=== PATIENT | male | born 1955 | race Caucasian/White ===

== ENCOUNTER → 2023-10-03 06:50 | Outpatient (REF) | payer OTHER, SELFPAY | LOC: MRI 3T 06:50 | PROVIDERS: ATTENDING PHYSICIAN Student in an Organized Health Care Education/Training Program; FAMILY PHYSICIAN Family Medicine | DX: M79.671 Pain in right foot (principal) | CPT/HCPCS: 73718 ==

== ENCOUNTER → 2024-05-15 14:15 | Outpatient (REF) | payer OTHER, SELFPAY | LOC: HWRAD 14:15 | PROVIDERS: ATTENDING PHYSICIAN Surgery; FAMILY PHYSICIAN Family Medicine | DX: N20.0 Calculus of kidney (principal) | CPT/HCPCS: 76770 ==

== ENCOUNTER → 2024-05-23 09:22 | Outpatient (REF) | payer OTHER, SELFPAY | LOC: HWRAD 09:22 | PROVIDERS: ATTENDING PHYSICIAN Family Medicine | DX: M25.521 Pain in right elbow (principal) | CPT/HCPCS: 73070 ==

== ENCOUNTER → 2024-10-04 13:38 | Outpatient (REF) | payer OTHER, SELFPAY | LOC: PAVMRI 13:38 | PROVIDERS: ATTENDING PHYSICIAN Family Medicine | DX: R26.89 Other abnormalities of gait and mobility (principal); H93.8X3 Other specified disorders of ear, bilateral; H92.03 Otalgia, bilateral; M43.6 Torticollis | CPT/HCPCS: 70553; A9575 ==

== ENCOUNTER 2025-02-04 18:31 | Inpatient (IN) | payer OTHER, SELFPAY ==
[2025-02-04] VITALS (17 sets, daily range): BP systolic 111–165; BP diastolic 56–97; BMI 37.0; BMI 35.9
[2025-02-04 13:15] LABS: Hematocrit 36.1 % (39.0-52.0); Hemoglobin 10.6 g/dL (13.0-18.0); Mean Corp Hgb Conc. 29.4 g/dL (33.0-37.0); Mean Corpuscular Volume 76.0 fL (80.0-94.0); Nucleated Red Blood Cells % 0 % (-); Platelet Count 248 10^3/uL (130-400); Red Cell Dist. Width 18.0 % (11.5-14.5)
[2025-02-04 13:39] LABS: ALT (SGPT) 23 U/L (0-50); AST (SGOT) 21 U/L (17-59); Albumin 3.7 g/dl (3.5-5.0); Alkaline Phosphatase 118 U/L (38-126); Blood Urea Nitrogen 17 mg/dl (9-20); Calcium 8.5 mg/dl (8.4-10.2); Carbon Dioxide 27 mmol/L (22-30); Chloride 109 mmol/L (98-107); Glucose 103 mg/dl (70-99); Potassium 3.6 mmol/L (3.5-5.1); Sodium 143 mmol/L (135-145); Total Protein 5.9 g/dl (6.3-8.2); eGFR 49.77
[2025-02-04 13:41] LABS: Troponin I 0.017 ng/ml
--- NOTE | 2025-02-04 16:27 | ED.GENMED ---
History of Present Illness
<Devaughn Carballo MD - Last Filed: 02/04/25 16:28>
General
Chief Complaint: Dizziness
Time Seen by Provider: 02/04/25 15:33
<Caprice Jay PA-C - Last Filed: 02/04/25 19:55>
General
Source: patient
History of Present Illness
History of Present Illness:
see mdm
Past History
<Devaughn Carballo MD - Last Filed: 02/04/25 16:28>
Past History
ED Past Medical History: CVA, HTN and NIDDM
ED Past Surgical History: None
Social History
Tobacco: Non-smoker
Alcohol: None
Drug: None
Personal:
Living: with family
Family History
Family History: Other
Phy Exam
<Caprice Jay PA-C - Last Filed: 02/04/25 19:55>
Physical Exam
Physical Exam:
GENERAL: Alert , in no apparent distress, awake/alert
EYE: pupils equal and reactive
NECK: Supple
ENT: o/p clr, mmm.
CARDIAC: bradycardia 40s; irregular; mild B/L LE pitting edema .
LUNGS: Clear breath sounds bilaterally, no acute respiratory distress, no wheezes/rales/rhonchi
ABDOMEN: Soft, without focal tenderness, no r/g, no cvat, normal bowel sounds
NEUROLOGICAL: Alert and oriented, no focal neuro deficits, moving tee xtremities; no confusion
SKIN: Warm and dry, skin intact. bruising L knee
MUSCULOSKELETAL: mild b/l edema, well perfused. neg gerri's sign
L knee anterior bruising and swelling sts, full ROM
PSYCH: Normal and appropriate interaction.
Course
<Devaughn Carballo MD - Last Filed: 02/04/25 16:28>
Orders/Labs/Results
Orders:
Orders
02/04/25 12:18
Electrocardiogram (*1) Urgent
Reason for Study: Vertigo / Dizzy
CT Head W/o Iv Contrast Urgent
Comment:
Reason For Exam: Dizziness with stroke hx
02/04/25 12:19
EKG- Treatment ONCE
02/04/25 12:44
Complete Blood Count/With Diff Urgent
Comprehensive Metabolic Panel Urgent
Ferritin Urgent
Comment: ADD ON
Folate Urgent
Comment: ADD ON
Iron Urgent
Magnesium Urgent
Comment: ADDON
Total Iron Binding Urgent
Troponin I Urgent
02/04/25 16:06
EKG [Electrocardiogram (*1)] Urgent
Reason for Study: Bradycardia / Tachycardia
02/04/25 16:07
EKG- Treatment ONCE
02/04/25 16:54
Atropine Sulfate [Atropine 0.1 mg/ml Syringe] 1 mg .ROUTE .STK-MED ONE
02/04/25 17:43
CARDIOLOGY CONSULT Routine
Consulting Provider: Joby Elias
Was physician already notified: Yes
Reason for consult: Symptomatic bradycardia
02/04/25 17:44
Admit/Transfer Patient As Directed
Co-Sign Provider:
Level of Care: Inpatient admission
Assign to:: IVU
Physician / Group: romy rodriguez
Diagnosis: Symptomatic bradycardia, ANN, microcytic anemia
Reason for Hospitalization: Symptomatic bradycardia, ANN, microcytic anemia
Expected length of stay greater than two midnights?: Yes
ELOS- Estimated Length of Stay in days: 4
I certify the patient meets the requirements for IP care: Yes
Code Status As Directed
Resuscitation Status: Full Code
02/04/25 17:46
PRN Pain Medication Management As Directed
May give lesser potent ordered pain med per pt: Yes
preference::
Protocol:: Medication orders for pain may be administered in a
manner that supports deferring to patient preference
when the pt is:
- Requesting an ordered lesser potent pain medication.
Least to most potent pain medications are defined
as: acetaminophen < NSAID < tramadol < opioids
(morphine, oxycodone, hydromorphone).
- Requesting a lesser dose of the same medication IF
ORDERED.
- Requesting a less intrusive route of administration
if both routes are prescribed by the provider (PO <
IV).
02/04/25 17:48
Add On- LAB Urgent
Tests Added?: Ferritin, TIBC, iron, B12, folate
02/04/25 17:53
Add On- LAB Urgent
Tests Added?: mag
Abnormal Lab Results
02/04/25
12:44
Hgb 10.6 L g/dL
(13.0-18.0)
Hct 36.1 L %
(39.0-52.0)
MCV 76.0 L fL
(80.0-94.0)
MCH 22.3 L pg
(27.0-31.0)
MCHC 29.4 L g/dL
(33.0-37.0)
RDW 18.0 H %
(11.5-14.5)
Absolute Neuts (auto) 6.8 H 10^3/uL
(1.4-6.5)
Absolute Monos (auto) 0.9 H 10^3/uL
(0.1-0.6)
Lymphocytes % 17.9 L %
(20.5-51.1)
Chloride 109 H mmol/L
(98-107)
Creatinine 1.5 H mg/dL
(0.7-1.3)
Glucose 103 H mg/dl
(70-99)
Iron 35 L ug/dl
(49-181)
% Saturation 9 L %
(20-50)
Total Protein 5.9 L g/dl
(6.3-8.2)
02/04/25 12:44
02/04/25 12:44
Vital Signs
Initial and Last Documented VS:
Initial Vital Signs
Temp Pulse Resp BP Pulse Ox
36.7 C 55 20 111/56 96
02/04/25 12:16 02/04/25 12:16 02/04/25 12:16 02/04/25 12:16 02/04/25 12:16
Last Documented Vital Signs
Temp Pulse Resp BP Pulse Ox
36.7 C 67 20 155/96 97
02/04/25 12:16 02/04/25 19:48 02/04/25 19:30 02/04/25 19:30 02/04/25 19:30
<Caprice Jay PA-C - Last Filed: 02/04/25 19:55>
Orders/Labs/Results
Orders:
Orders
02/04/25 12:18
Electrocardiogram (*1) Urgent
Reason for Study: Vertigo / Dizzy
CT Head W/o Iv Contrast Urgent
Comment:
Reason For Exam: Dizziness with stroke hx
02/04/25 12:19
EKG- Treatment ONCE
02/04/25 12:44
Complete Blood Count/With Diff Urgent
Comprehensive Metabolic Panel Urgent
Ferritin Urgent
Comment: ADD ON
Folate Urgent
Comment: ADD ON
Iron Urgent
Magnesium Urgent
Comment: ADDON
Total Iron Binding Urgent
Troponin I Urgent
02/04/25 16:06
EKG [Electrocardiogram (*1)] Urgent
Reason for Study: Bradycardia / Tachycardia
02/04/25 16:07
EKG- Treatment ONCE
02/04/25 16:54
Atropine Sulfate [Atropine 0.1 mg/ml Syringe] 1 mg .ROUTE .STK-MED ONE
02/04/25 17:43
CARDIOLOGY CONSULT Routine
Consulting Provider: Joby Elias
Was physician already notified: Yes
Reason for consult: Symptomatic bradycardia
02/04/25 17:44
Admit/Transfer Patient As Directed
Co-Sign Provider:
Level of Care: Inpatient admission
Assign to:: IVU
Physician / Group: romy rodriguez
Diagnosis: Symptomatic bradycardia, ANN, microcytic anemia
Reason for Hospitalization: Symptomatic bradycardia, ANN, microcytic anemia
Expected length of stay greater than two midnights?: Yes
ELOS- Estimated Length of Stay in days: 4
I certify the patient meets the requirements for IP care: Yes
Code Status As Directed
Resuscitation Status: Full Code
02/04/25 17:46
PRN Pain Medication Management As Directed
May give lesser potent ordered pain med per pt: Yes
preference::
Protocol:: Medication orders for pain may be administered in a
manner that supports deferring to patient preference
when the pt is:
- Requesting an ordered lesser potent pain medication.
Least to most potent pain medications are defined
as: acetaminophen < NSAID < tramadol < opioids
(morphine, oxycodone, hydromorphone).
- Requesting a lesser dose of the same medication IF
ORDERED.
- Requesting a less intrusive route of administration
if both routes are prescribed by the provider (PO <
IV).
02/04/25 17:48
Add On- LAB Urgent
Tests Added?: Ferritin, TIBC, iron, B12, folate
02/04/25 17:53
Add On- LAB Urgent
Tests Added?: mag
Abnormal Lab Results
02/04/25
12:44
Hgb 10.6 L g/dL
(13.0-18.0)
Hct 36.1 L %
(39.0-52.0)
MCV 76.0 L fL
(80.0-94.0)
MCH 22.3 L pg
(27.0-31.0)
MCHC 29.4 L g/dL
(33.0-37.0)
RDW 18.0 H %
(11.5-14.5)
Absolute Neuts (auto) 6.8 H 10^3/uL
(1.4-6.5)
Absolute Monos (auto) 0.9 H 10^3/uL
(0.1-0.6)
Lymphocytes % 17.9 L %
(20.5-51.1)
Chloride 109 H mmol/L
(98-107)
Creatinine 1.5 H mg/dL
(0.7-1.3)
Glucose 103 H mg/dl
(70-99)
Iron 35 L ug/dl
(49-181)
% Saturation 9 L %
(20-50)
Total Protein 5.9 L g/dl
(6.3-8.2)
02/04/25 12:44
02/04/25 12:44
Vital Signs
Initial and Last Documented VS:
Initial Vital Signs
Temp Pulse Resp BP Pulse Ox
36.7 C 55 20 111/56 96
02/04/25 12:16 02/04/25 12:16 02/04/25 12:16 02/04/25 12:16 02/04/25 12:16
Last Documented Vital Signs
Temp Pulse Resp BP Pulse Ox
36.7 C 67 20 155/96 97
02/04/25 12:16 02/04/25 19:48 02/04/25 19:30 02/04/25 19:30 02/04/25 19:30
<Caprice Jay PA-C - Last Filed: 02/04/25 19:55>
MDM/Problems Addressed
MDM/Problems Addressed:
Note:
CHIEF COMPLAINT(S)
Dizziness and history of a fall.
HISTORY OF PRESENT ILLNESS
The patient presents with complaints of dizziness and a history of falling. The patient reports walking into a wall, which prompted a visit to the emergency department. The fall occurred on Tuesday due to tripping over a door sill, not due to
dizziness. The patient describes a feeling as if about to pass out, which began today while accompanying the spouse for a medical procedure. No loss of consciousness was reported, nor was there any chest pain, shortness of breath, or headache
associated with these episodes. The patient does report feeling generally tired. A history of low heart rate was noted, with the patient confirming no previous episodes of significant bradycardia. The patients dizziness today is associated with
occasional compensatory pauses in heart rhythm but no confirmed long runs. The patient denies any visual problems, confirming good eyesight except for possibly tripping due to environmental factors.
CHRONIC MEDICAL CONDITIONS SIGNIFICANTLY AFFECTING CARE
1. Hypertension, treated with Lisinopril.
2. Type 2 Diabetes Mellitus.
3. Patient is on Apixaban for anticoagulation treatment.
4. History of edema treated with Furosemide.
MEDICATIONS
1. Lisinopril for hypertension.
2. Apixaban for anticoagulation.
3. Furosemide (Lasix) as a diuretic for edema.
REVIEW OF SYSTEMS
- Cardiovascular: Reports no chest pain or shortness of breath. History of slow heart rate and occasional dizziness.
- General: Reports feeling fatigued and wiped out. No fever or chills reported.
- Neurological: Experiences dizziness but no loss of consciousness or headache. Reports feeling a sensation edson to passing out.
- Respiratory: No shortness of breath reported.
PHYSICAL EXAM
- Cardiovascular: Noted slow heart rate consistent with bradycardia.
- Neurology: Patient is awake and alert.
- Nursing notes reviewed and vital signs reviewed.
PROBLEM LIST
- Acute:
- Dizziness with compensatory pauses in heart rhythm.
- Chronic:
- Hypertension.
- Type 2 Diabetes Mellitus.
PLAN
1. Observe and monitor heart rhythm and rate in hospital to assess for potential atrioventricular blocks or other arrhythmias.
2. Perform a comprehensive evaluation of thyroid function to rule out thyroid-related causes.
3. Consider cardiology consultation to evaluate possible need for a pacemaker due to bradycardia and the sensation of near syncope.
DIFFERENTIAL DIAGNOSIS
The Differential Diagnosis includes, in no particular order and is not limited to:
1. Bradycardia-related dizziness.
2. Arrhythmia.
3. Orthostatic hypotension.
4. Vestibular dysfunction.
5. Medication side effects.
6. Dehydration.
7. Hypoglycemia.
8. Anemia.
9. Myocardial infarction.
10. Cerebrovascular accident (CVA or Stroke).
PT IS HAVE COMPENSATORY PAUSES; SINUS KERI WITH PVCS
he is symptomatic
sloer to respond but no CP
stabl BP
with near syncope/dizziness, will admit
<Devaughn Carballo MD - Last Filed: 02/04/25 16:28>
*Pulse Oximetry
SaO2: 96
Oxygen Mode of Delivery: Room air
<Caprice Jay PA-C - Last Filed: 02/04/25 19:55>
*Pulse Oximetry
Patient hypoxic: no (97)
*Critical Care Note
Total Time (30-74mins, 75-104mins- exclusive of procedures): Not Applicable
ED Attending Note
<Devaughn Carballo MD - Last Filed: 02/04/25 16:28>
ED Attending Note
Patient seen and examined by attending physician: Yes
I performed the substantive portion of visit, reviewed & personally made and approve the management plan that is documented in note by myself or MATTHEW.: Yes
ED Attending Note:
Patient with an episode of near syncope today. Also had a fall days ago. No chest pain shortness of breath or other complaints.
On exam patient is nontoxic in no distress. Slightly flat affect. Bradycardic and regular no murmur. Lungs are clear and equal. Abdomen is soft and nontender. Areas of ecchymosis left greater than right leg.
Rhythm is a bradycardic sinus rhythm. EKG shows an ectopic rhythm repeat EKG shows a sinus rhythm. PVCs with pause after the PVCs. Whether this is related to his near syncope is uncertain at this time. Symptomatic enough to warrant continued
monitoring and admission. Previous EKGs reviewed he does tend to be bradycardic however. Nothing on the monitor to support life-threatening arrhythmia or significant pause at this time
-
Portions of this chart may have been created with voice recognition software.� Occasional wrong word or��sound alike� substitutions may have occurred due to the inherent limitations of voice recognition software.
Discharge Plan
Departure
Patient Disposition: Admit
Date of Disposition: 02/04/25
Time of Disposition: 16:25
Admit to: Telemetry
Presentation/result/management discussed w/ accepting MD/DO: Hospitalist
Condition: Fair
Covid-19: Not Applicable
Discharge Problem:
Near syncope, Bradycardia, pvc with pause
Interventions
Interventions:
*General Assessment Last Done: 02/04/25 12:16
*Neglect/Abuse Screening Last Done: 02/04/25 15:20
*ED- Fall Risk Assessment Last Done: 02/04/25 15:20
*ED COVID-19 Vaccine History Last Done: 02/04/25 15:20
ED- Neurological Assessment Last Done: 02/04/25 15:30
ED- Cardiac Assessment Last Done: 02/04/25 15:30
--- NOTE | 2025-02-04 17:13 | HPS.HSE ---
Addendum entered and electronically signed by Tasneem Hough MD 02/04/25 22:36:
I have personally seen and examined the patient. I have reviewed the patient with FRONT DESK MANAGER or PA and agree with their note.
69-year-old male with PAF, HTN, DM2, CVA with residual right sided weakness, essential tremor, presenting with near syncope, found to be bradycardic to the 40s with occasional PACs. He is seen now at rest in the ED and his HR is fluctuating between
50 and 60, and he is asymptomatic.
On exam he is in NAD, heart is bradycardic, with irregular rhythm, no murmur. Lungs are CTAB, abdomen soft/NT/ND/NABS, bilateral lower extremity edema.
Labs are notable for creatinine of 1.5
EKG reviewed bradycardia to 45 bpm, appears regular
Assessment:
Symptomatic bradycardia
ANN
Chronic edema
Chronic anemia
HTN
PAF
DM2
Plan:
Cardiology consulted, hold propranolol and monitor on telemetry. No reversal agent as yet. Admit to IVU in case pacemaker needed.
Patient's Lasix on hold, monitor BMP to see if ANN resolved
Other meds as below for chronic stable conditions
Original Note:
Family Physician
-
Family Physician: Michael Pastro
Chief Complaint
-
Dizziness, bradycardia
History of Present Illness
69-year-old male who states he had a feeling of he was going to pass out today while walking he felt like his vision was getting black and he stumbled into a wall. He dropped his off today for a knee replacement. He reports having a couple
similar episodes over the past month. He has also been feeling tired. He did have a fall on Tuesday 2 days ago however he tripped over a dorsal this was not due to dizziness. It was noted he was bradycardic with heart rate as low as 41 bpm and
occasional PACs. He is on a diuretic due to history of edema and is on a beta-indy for essential tremors. He denies headache, blurred vision, sore throat, fever, chills, chest pain, palpitations, shortness of breath, cough, abdominal pain,
nausea, vomiting, diarrhea, urinary symptoms. He has past medical history of HTN, paroxysmal A-fib on Eliquis, DM 2, HLD, edema, CVA with right-sided weakness, HLD, lumbar radiculopathy/sciatica, essential tremor, depression anxiety, BPH,History
lithotripsy/stone extraction stent placement complicated with sepsis UTI, urine positive Enterococcus 05/15/2023.
Medical History
Past Medical History
Past Medical History: Reports Other
Additional Past Medical History:
history of nephrolithiasis, essential tremor, hypertension, depression, BPH, paroxysmal A-fib on warfarin, hyperlipidemia, [id number] diabetes mellitus, history of CVA with some right-sided residual weakness, lumbar
radiculopathy/sciatica, chronic ambulatory dysfunction uses cane at baseline
Past Surgical History: Reports Other
Social History
Tobacco: Non-smoker
Alcohol: None
Personal:
Living: With Family
Family History
Family History: Not pertinent
Allergies / Home Medications
Allergies reflects when Allergies were last updated in [facility].
Home Medications with original date entered in [facility]
Allergy/Medication List:
Allergies
Allergy/AdvReac Type Severity Reaction Status Date / Time
Penicillins Allergy Intermediate Hives, rash Verified 02/04/25 12:16
Home Medications
propranolol 120 mg capsule,24 hr,extended release 120 mg PO BID 06/12/16
hydralazine 50 mg tablet 50 mg PO TID #90 tabs 05/18/18
tamsulosin 0.4 mg capsule 0.4 mg PO HS 08/24/19
cyanocobalamin (vitamin B-12) 1,000 mcg tablet 1,000 mcg PO DAILY@1500 Supplement 01/19/21
duloxetine 60 mg capsule,delayed release 60 mg PO BID Mental Health/Anxiety 01/19/21
primidone 250 mg tablet 250 mg PO BID 01/19/21
amlodipine 5 mg tablet 5 mg PO DAILY Blood Pressure 06/03/22
apixaban 5 mg tablet (Eliquis) 5 mg PO BID #60 tabs 05/19/23
acetaminophen 500 mg tablet (Tylenol Extra Strength) 1,000 mg PO DAILYPRN PRN mild pain 02/04/25
alprazolam 0.5 mg tablet,extended release 24 hr 0.5 mg PO DAILY 02/04/25
aspirin 81 mg tablet,delayed release 81 mg PO DAILY@1500 02/04/25
atorvastatin 80 mg tablet 80 mg PO DAILY 02/04/25
cinnamon bark 500 mg capsule (Cinnamon) 500 mg PO .EVERY 2-3 DAYS 02/04/25
furosemide 40 mg tablet 40 mg PO DAILYPRN PRN edema 02/04/25
ibuprofen 200 mg tablet (Advil) 400 mg PO DAILYPRN PRN mild pain 02/04/25
lisinopril 40 mg tablet 40 mg PO DAILY@1500 02/04/25
topiramate 50 mg tablet 50 mg PO BID 02/04/25
Review of Systems
-
History Source: Patient
A 12 point ROS was completed and negative except as noted: Yes
Constitutional: Reports Fatigue; Denies Fever
EENT: Denies Sore Throat or Runny Nose
Respiratory: Denies Cough or Trouble Breathing
Cardiac: Denies Chest Pain, Diaphoresis, Palpitations or Syncope
Abdomen/GI: Denies Abdominal Pain, Nausea, Vomiting, Diarrhea, Constipated, Bloody Stools or Black Stools
: Denies Dysuria, Frequency, Flank Pain, Incontinence or Difficulty Voiding
Musculoskeletal: Reports Edema (+1 pitting bilateral lower legs); Denies Joint Pain
Skin: Denies Itching or Rash
Neurological: Reports Dizzy and Weakness; Denies Headache
Endocrine: Reports No Symptoms
Hematologic/Lymphatic: Reports No Symptoms
Psych: Reports Calm
Physical Exam
Vital Signs
Vital Signs
Temp Pulse Resp BP Pulse Ox
98.0 F 48 16 139/90 96
02/04/25 12:16 02/04/25 17:00 02/04/25 17:00 02/04/25 17:00 02/04/25 17:00
Physical Exam
General: Comfortable, Conversant and Morbidly Obese; No Fever, Chills or Slurred Speech
HEENT: NormoCephalic, Anicteric, PERRLA, Sentinel Conjunctivae and No Ptosis
Respiratory: Clear; No Wheezes, Rales or Rhonchi
Cardiac: S1/S2, Bradycardia (Bradycardia with PVCs 41-57 bpm) and Peripheral Edema (+1 pitting bilateral lower legs); No Murmur, Rub or Gallop
Breast: Deferred by me
GI: Soft, Non Tender, Non Distended, Normal Bowel Sounds and No Hepatosplenomegaly
Rectal: Deferred by Provider
Genito-urinary: Deferred by me
Musculoskeletal: No Clubbing, No Cyanosis, Edema, Left Lower Extremity (+1 pitting) and Edema, Right Lower Extremity (+1 pitting); No Edema, Left Upper Extremity or Edema, Right Upper Extremity
Skin: Warm and Dry; No Rash or Jaundice
Neuro: AO x 3, No Motor Deficits (While in bed), Nonfocal/grossly intact, Cranial Nerves Intact, No Sensory Deficits and Tremors (Essential hands); No Slurred Speech, Facial Droop or Sedated
Psych: Calm
Laboratory Results
-
02/04/25 12:44
02/04/25 12:44
Laboratory Results
Total Bilirubin 0.4 mg/dl (0.2-1.3) 02/04/25 12:44
AST 21 U/L (17-59) 02/04/25 12:44
ALT 23 U/L (0-50) 02/04/25 12:44
Alkaline Phosphatase 118 U/L (38-126) 02/04/25 12:44
Troponin I 0.017 ng/ml 02/04/25 12:44
Impression/Plan
-
Impression/plan:
Admit to IVU
#Symptomatic bradycardia
HR 41-57 bpm with frequent PVCs
- Consult cardiology
- Hold propranolol
- Continue Eliquis
CT head: No acute intracranial abnormalities. Findings compatible with diffuse cortical atrophy with nonspecific white matter changes
#ANN
Creat 1.5 prior baseline 1
- Will hold Lasix monitor BMP
- Hold lisinopril 40 mg daily
#Chronic peripheral edema
-Hold Lasix due to ANN
#Chronic anemia-microcytic
Hgb 10.6 baseline appears 11.5, MCV 76
-Check iron panel
#HTN�benign
BP 139/90
- Continue hydralazine 50 mg p.o. 3 times daily
#Paroxysmal A-fib
- Continue Eliquis
2D echo 05/17/2023: EF 55%, left ventricle mildly dilated, normal LVSF, mild LVH, trace MR, TR, PASP 25-30 mmHg
#CVA with right-sided weakness
Continue aspirin 81 mg daily, atorvastatin 80 mg daily
#HLD
Continue atorvastatin 80 mg daily
#DM 2
Accu-Cheks with SSI, check HgbA1c
- Hold metformin 850 mg p.o. twice daily
#History lumbar radiculopathy/sciatica
#Essential hand tremor
- Hold propranolol
- Continue primidone to 50 mg p.o. twice daily
#Depression/anxiety
- Continue alprazolam 0.5 mg p.o. twice daily as needed anxiety
#BPH
#History lithotripsy/stone extraction stent placement complicated with sepsis UTI, urine positive Enterococcus 05/15/2023
- Continue Flomax 0.4 mg daily
#Chronic ambulatory dysfunction
-Uses cane at baseline
#Class II obesity�BMI 36.9
Affects all aspects of care
Weight loss recommended low-fat 1800 ADA diet
DVT prophylaxis
Continue Eliquis
Full code
[2025-02-04 18:23] LABS: Iron 35 ug/dl (49-181); Magnesium 2.3 mg/dl (1.6-2.3)
[2025-02-04 18:32] LABS: Total Iron Binding Capacity 370 ug/dl (261-462)
[2025-02-04 21:44] LABS: Glucose - Point of Care 132 mg/dl (70-99)
[2025-02-04] MEDS: CYMBALTA DELAYED RELEASE 60 MG PO (22:09)
[2025-02-04] MEDS: TOPAMAX 50 MG PO (22:09)
[2025-02-04] MEDS: ELIQUIS 5 MG PO (22:09)
[2025-02-04] MEDS: FLOMAX 0.4 MG PO (22:09)
[2025-02-04] MEDS: APRESOLINE 50 MG PO (22:09)
[2025-02-04] MEDS: MYSOLINE 250 MG PO (22:09)
[2025-02-05] VITALS (11 sets, daily range): BP systolic 123–146; BP diastolic 54–82; PULSE 52–55; O2SAT 98; BMI 35.7
[2025-02-05 00:18] LABS: Ferritin 6.3 ng/ml (17.9-464.0)
[2025-02-05 00:49] LABS: Folate 10.3 ng/ml (2.76-20)
--- NOTE | 2025-02-05 03:30 | PTCARENOTE ---
pt admitted to room 2241. Pt AAox3. SB with PVCs and 1st HB on monitor. C/o slightly lightheadedness when OOB. Ambulates with x1 assist and RW. Pt oriented to the room, call henry within reach.
[2025-02-05] MEDS: TYLENOL 650 MG PO ×3 (04:12→21:04)
[2025-02-05 04:34] LABS: Hematocrit 33.4 % (39.0-52.0); Hemoglobin 10.0 g/dL (13.0-18.0); Mean Corp Hgb Conc. 29.9 g/dL (33.0-37.0); Mean Corpuscular Volume 74.7 fL (80.0-94.0); Nucleated Red Blood Cells % 0 % (-); Platelet Count 215 10^3/uL (130-400); Red Cell Dist. Width 17.7 % (11.5-14.5)
[2025-02-05 05:35] LABS: Blood Urea Nitrogen 18 mg/dl (9-20); Calcium 8.2 mg/dl (8.4-10.2); Carbon Dioxide 29 mmol/L (22-30); Chloride 113 mmol/L (98-107); Estimated Creatinine Clearance 76 ml/min; Glucose 108 mg/dl (70-99); Potassium 3.0 mmol/L (3.5-5.1); Sodium 143 mmol/L (135-145); eGFR > 60.00
[2025-02-05] MEDS: NORVASC 5 MG PO (08:18)
[2025-02-05] MEDS: LIPITOR 80 MG PO (08:19)
[2025-02-05] MEDS: ELIQUIS 5 MG PO ×2 (08:19→20:57)
[2025-02-05] MEDS: MYSOLINE 250 MG PO ×2 (08:19→20:57)
[2025-02-05] MEDS: XANAX 0.25 MG PO ×2 (08:19→20:57)
[2025-02-05] MEDS: APRESOLINE 50 MG PO ×3 (08:19→20:57)
[2025-02-05] MEDS: TOPAMAX 50 MG PO ×2 (08:19→20:57)
[2025-02-05] MEDS: CYMBALTA DELAYED RELEASE 60 MG PO ×2 (08:19→20:58)
--- NOTE | 2025-02-05 08:48 | CON.CAR ---
Addendum entered and electronically signed by Joby Elias MD 02/05/25 11:01:
I saw and examined the patient.
The SCREENER OPERATOR or PA's note was reviewed and I agree with the note.
Comment: General: Well developed, well nourished in NAD.
Neck: Supple, no JVD, HJR, carotids +2 B/L, no bruits bilaterally.
Heart: Non displaced PMI, RRR, no murmurs, No S3, S4, no rubs.
Lungs: Clear to auscultation bilaterally, no wheeze, rhonchi, rubs bilaterally,
normal expiratory phase.
Extremities: No clubbing, cyanosis or edema bilaterally.
Neuro: Grossly nonfocal, awake, alert and oriented x3.
Follow-up as history of A-fib on chronic Eliquis, asymptomatic bradycardia, essential tremor on chronic propranolol, history of CVA, diabetes, diastolic CHF, PFO. He presented with presyncope. He noticed his vision is starting to go black and
bumped into the wall. He denied feeling lightheaded or dizzy. He has not had syncope. Of note he had not eaten yesterday or had anything to drink and renal function revealed a creatinine of 1.5. Cardiology is consulted for bradycardia.
Unclear if bradycardia is the cause of his symptoms. Also could have an element of dehydration and is hypokalemic. Will decrease lisinopril to 20 mg daily and decrease Inderal to 60 mg p.o. twice daily. Also decrease Lasix to 20 mg daily. Will
check echocardiogram. Will arrange for outpatient monitor. If echocardiogram okay stable cardiology status for discharge.
Original Note:
Consultation
Consultation Request
Date/Time Consultation Performed: 02/05/25
Requesting Provider: Dr. Tiwari
Performing Provider: Jazzy Cooper PA-C for Dr. Nancy Aleman
Reason for Consultation: bradycardia, presyncope
Medical History
-
Chief Complaint: presyncope
History of Present Illness:
Patient is a 69 yo M with PMH of paroxysmal atrial fibrillation on chronic Eliquis, asymptomatic bradycardia, essential tremor on chronic propranolol, history of stroke, type 2 diabetes, heart failure with preserved EF, PFO, who presents to
[facility] due to episode of presyncope yesterday. He reports he had dropped off his who is getting knee surgery, and on the way walking out he states that his vision 'started to go black' and he bumped into the wall. The woman
behind him asked if he was okay and he said he did not feel well. She told him to go to the emergency room for further evaluation. He denies feeling lightheaded, or dizzy prior to the event. He typically walks with a cane. He states he had not
eaten or had anything to drink yesterday morning and Cr was elevated at 1.5 on arrival. He has been maintained on 20 mg daily of Lasix, however dose was increased to 40 mg daily during 08/2024 office visit due to weight gain and lower extremity
edema, however then after discussion with his PCP last week, dose was decreased back to 20mg daily however he has only done this for several days due to being busy helping prep for her surgery. He reports he has had issues with hard stools at
home in last several weeks. Cardiology consulted for evaluation.
PMH:
Asymptomatic bradycardia
Chronic HFpEF
PAF
Chronic OAC with eliquis
Essential tremor on propranolol
History of CVA 2017
PFO
HLD
HTN
DM2
Depression/anxiety
Past Medical History
Past Medical History: Other (in HPI)
Social History
Tobacco: Non-Smoker
Personal:
Living: With Family
Employment: Retired
Family History
Family History: Other (CVA, HTN in father)
Allergies / Home Medications
Allergy/AdvReac Type Severity Reaction Status Date / Time
Penicillins Allergy Intermediate Hives, rash Verified 02/04/25 12:16
�Medication �Instructions �Recorded �Confirmed �Type
propranolol 120 mg capsule,24 120 mg PO BID 06/12/16 02/04/25 History
hr,extended release
hydralazine 50 mg tablet 50 mg PO TID #90 tabs 05/18/18 02/04/25 Rx
tamsulosin 0.4 mg capsule 0.4 mg PO HS 08/24/19 02/04/25 History
cyanocobalamin (vitamin B-12) 1,000 mcg PO DAILY@1500 Supplement 01/19/21 02/04/25 History
1,000 mcg tablet
duloxetine 60 mg capsule,delayed 60 mg PO BID Mental Health/Anxiety 01/19/21 02/04/25 History
release
primidone 250 mg tablet 250 mg PO BID 01/19/21 02/04/25 History
amlodipine 5 mg tablet 5 mg PO DAILY Blood Pressure 06/03/22 02/04/25 History
apixaban 5 mg tablet (Eliquis) 5 mg PO BID #60 tabs 05/19/23 02/04/25 Rx
acetaminophen 500 mg tablet 1,000 mg PO DAILYPRN PRN mild pain 02/04/25 02/04/25 History
(Tylenol Extra Strength)
alprazolam 0.5 mg tablet,extended 0.5 mg PO DAILY 02/04/25 02/04/25 History
release 24 hr
aspirin 81 mg tablet,delayed 81 mg PO DAILY@1500 02/04/25 02/04/25 History
release
atorvastatin 80 mg tablet 80 mg PO DAILY 02/04/25 02/04/25 History
cinnamon bark 500 mg capsule 500 mg PO .EVERY 2-3 DAYS 02/04/25 02/04/25 History
(Cinnamon)
furosemide 40 mg tablet 40 mg PO DAILYPRN PRN edema 02/04/25 02/04/25 History
ibuprofen 200 mg tablet (Advil) 400 mg PO DAILYPRN PRN mild pain 02/04/25 02/04/25 History
lisinopril 40 mg tablet 40 mg PO DAILY@1500 02/04/25 02/04/25 History
topiramate 50 mg tablet 50 mg PO BID 02/04/25 02/04/25 History
Review of Systems
-
History Source: Patient
All other systems: Negative unless noted
Physical Exam
Vital Signs
Temp Pulse Resp BP Pulse Ox
98.5 F 57 18 134/83 94
02/05/25 06:52 02/05/25 08:19 02/05/25 06:52 02/05/25 08:19 02/05/25 06:52
Lab Results
02/05/25 06:00
02/05/25 06:00
Troponin I 0.017 ng/ml 02/04/25 12:44
Physical Exam
General: No Apparent Distress and Comfortable
HEENT: Normocephalic, Anicteric and Moist Mucous Membranes
Respiratory: Clear and Non Labored Respirations
Cardiac: S1/S2 and Regular Rhythm
GI: Soft, Non Tender, Non Distended and Normal Bowel Sounds
Musculoskeletal: No Clubbing, No Cyanosis and Edema (trace to 1+ edema of B/L LE)
Skin: Warm and Dry
Neuro: AO x 3
Impression / Plan
-
Primary Claims Processor: Dr. Nancy Aleman
Assessment:
Presentation with presyncope
ANN
Hypokalemia
Bradycardia with history of asymptomatic bradycardia
Chronic HFpEF
PAF
Chronic OAC with eliquis
Essential tremor on propranolol
History of CVA 2017
PFO
HLD
HTN
DM2
Depression/anxiety
Anemia
ECHO 2022: EF 55%, mild concentric LVH, trace MR, trace TR, PAP 25 to 30 mmHg
Plan:
- Patient presents with episode of presyncope
- head CT without acute abnormalities
- Noted to have ANN on arrival, creatinine 1.5, downtrending overnight 1.2 on 02/05. Outpatient Lasix and lisinopril remain on hold
- Propranolol also on hold given bradycardia. Patient has history of asymptomatic bradycardia. He is on propranolol for marked essential tremor, followed by neurology, Dr. Ned Redman
- On review of telemetry overnight, he has no evidence of significant pauses or AV block. Heart rates baseline 40s to 50s.
- will decrease propranolol dose to 60mg BID
- Check TSH ordered by me
- Echo ordered by me, last from 2022 as above
- Replete K
- Will arrange OP 7 day manager monitoring
- ambulate patient. check ortho VS
- would plan for lasix 20mg daily to resume in AM (recently decreased as OP from 40mg daily)
- will reduce OP lisinopril to 20mg daily
- of note, also anemic with hgb 10. on both asa and eliquis, would consider stopping asa and continuing with eliquis to reduce bleeding risk
- will arrange OP cardiac follow up
- d/w nursing
Data Reviewed
-
EKG: Tracing Personally Visualized and interpreted
CT Scan: Report Reviewed by me
Medical Tests (Nuc Med, Echo etc): Report Reviewed by me
Labs: Labs Reviewed by me
Old Records: Reviewed
[2025-02-05] MEDS: KCL 40 MEQ PO (09:35)
[2025-02-05 09:45] LABS: Glycohemoglobin (HgbA1c) 6.5 % (4.0-5.6)
--- NOTE | 2025-02-05 10:33 | PTCARENOTE ---
received patient this am, in bed, gave patient am medications, patient has tremors, no new. monitor shows NSR with a first degree, VSS. orthostatic VS taken by PT. K 3.0, supplemented with 40meq KCL as ordered. patient ambulated to [facility] with
walker to eat breakfast, kelly. well.
--- NOTE | 2025-02-05 12:14 | CM ---
Reviewed chart. Met with Mr. Sanford to review discharge plans. He states prior to admission he resides with his spouse in a two story home with three steps to enter. He states he has a full flight of steps to get to bedroom/full bathroom. He
states he has a powder room on the first floor. He states prior to admission he ambulates with a single point cane and holds on to furniture when in his home. He states has a single point cane at home. He states he has a prescription plan. We
reviewed [facility] and he is agreeable to [facility]. He is agreeable to [facility]. Telephone call to [facility] ti make the referral. Left message. Sent referral to [facility]. Medical work-up in
progress. The discharge plan is to return home with his spouse and [facility] when medically stable.
[2025-02-05 13:06] LABS: Glucose - Point of Care 104 mg/dl (70-99)
[2025-02-05] MEDS: VITAMIN B-12 1000 MCG PO (14:27)
[2025-02-05] MEDS: ASPIR LOW (ENTERIC COATED) 81 MG PO (14:27)
--- NOTE | 2025-02-05 15:49 | PTCARENOTE ---
echo completed at bedside.
--- NOTE | 2025-02-05 16:38 | W.PN.HOSP.TC ---
Today's Communication/Plan
-
Medications adjusted by cardiology�propranolol, Lasix, lisinopril
Echocardiogram pending
Assessment / Plan
Assessment / Plan
69-year-old male with PAF, HTN, DM2, CVA with residual right sided weakness, essential tremor, presenting with near syncope, found to be bradycardic to the 40s with occasional PACs.
#Symptomatic bradycardia
Patient with dizziness, head CT was negative for acute intracranial abnormalities.
HR 41-57 bpm with frequent PVCs
Continue to monitor on telemetry
- Consulted cardiology, they ordered echo which is pending
- They decreased propranolol dose to 60mg twice daily
- Continue Eliquis
#Hypokalemia
Repleted with p.o. potassium
#ANN�resolved
Creat 1.5 --> 1.2
- held Lasix and lisinopril, resumed at 20mg daily per cardiology
#Chronic peripheral edema
-Held Lasix due to ANN, resumed at 20 mg daily
#Chronic iron deficiency anemia - microcytic
Hgb 10.6 baseline appears 11.5, MCV 76
-Checked iron panel. Low iron and low ferritin
Start iron supplementation
#HTN
Controlled
- Continue hydralazine 50 mg p.o. 3 times daily
#Paroxysmal A-fib
- Continue Eliquis. Rate is controlled
#CVA with right-sided weakness
Continue aspirin 81 mg daily, atorvastatin 80 mg daily
#HLD
Continue atorvastatin 80 mg daily
#DM 2
Accu-Cheks with SSI, HgbA1c 6.5%
- Hold metformin 850 mg p.o. twice daily
#History lumbar radiculopathy/sciatica
#Essential hand tremor
-MGMT of propranolol
- Continue primidone to 50 mg p.o. twice daily
#Depression/anxiety
- Continue alprazolam 0.5 mg p.o. twice daily as needed anxiety
#BPH
#History lithotripsy/stone extraction stent placement complicated with sepsis UTI, urine positive Enterococcus 05/15/2023
- Continue Flomax 0.4 mg daily
#Chronic ambulatory dysfunction
-Uses cane at baseline
#Class II obesity�BMI 36.9
Affects all aspects of care
Weight loss recommended low-fat 1800 ADA diet
DVT prophylaxis
Continue Eliquis
Anticipated Discharge: 24 - 48 hours
Subjective/Interval History
-
Date of Service: February 05, 2025
Patient denies any lightheadedness or other issues over night.
Objective Data
-
Labs:
Laboratory Results
02/05/25
06:00
WBC 8.5
Hgb 10.0 L
Hct 33.4 L
Plt Count 215
Sodium 143
Potassium 3.0 L
Chloride 113 H
Carbon Dioxide 29
BUN 18
Creatinine 1.2
Glucose 108 H
Calcium 8.2 L
Vital Signs:
Vital Signs
Temp Pulse Resp BP Pulse Ox
98.2 F 56 16 146/68 97
02/05/25 16:16 02/05/25 16:18 02/05/25 16:16 02/05/25 16:18 02/05/25 16:16
Review of Systems
-
All other systems: Reviewed and negative
Physical Exam
-
General: Well Developed, Well Nourished and No Apparent Distress
HEENT: Moist Mucous Membranes and PERRLA
Respiratory: Clear to Auscultation; Negative Wheezes, Rales or Rhonchi
Cardiac: Bradycardic; Negative Murmur
GI: Soft, Nontender, Nondistended and Normal Bowel Sounds
Musculoskeletal: Edema, Right Lower Extrem and Edema, Left Lower Extrem
Skin: Warm and Dry
Neuro: Awake, AO x 3 and Nonfocal/Grossly Intact
Psych: Calm
Data Reviewed
-
Labs: Labs Reviewed by me
[2025-02-05 18:10] LABS: Glucose - Point of Care 98 mg/dl (70-99)
[2025-02-05] MEDS: FLOMAX 0.4 MG PO (20:57)
[2025-02-05 22:01] LABS: Glucose - Point of Care 133 mg/dl (70-99)
[2025-02-06 04:04] VITALS: BP 127/83
[2025-02-06 04:15] VITALS: BMI 35.6
[2025-02-06 04:35] LABS: Hematocrit 32.6 % (39.0-52.0); Hemoglobin 9.9 g/dL (13.0-18.0); Mean Corp Hgb Conc. 30.4 g/dL (33.0-37.0); Mean Corpuscular Volume 74.1 fL (80.0-94.0); Nucleated Red Blood Cells % 0 % (-); Platelet Count 222 10^3/uL (130-400); Red Cell Dist. Width 18.0 % (11.5-14.5)
[2025-02-06 04:54] LABS: Blood Urea Nitrogen 20 mg/dl (9-20); Calcium 8.3 mg/dl (8.4-10.2); Carbon Dioxide 24 mmol/L (22-30); Chloride 114 mmol/L (98-107); Estimated Creatinine Clearance 83 ml/min; Glucose 106 mg/dl (70-99); Potassium 3.3 mmol/L (3.5-5.1); Sodium 142 mmol/L (135-145); eGFR > 60.00
[2025-02-06] MEDS: KCL 40 MEQ PO (05:43)
[2025-02-06] MEDS: TYLENOL 650 MG PO ×3 (05:43→16:20)
--- NOTE | 2025-02-06 06:01 | PTCARENOTE ---
Pt SB on monitor, VSS. C/o left knee pain 7/10 Tylenol PRN given. Potassium 3.3 FITTER / WELDER made aware. Repleted with PO potassium.
[2025-02-06 06:46] VITALS: BP 133/83
[2025-02-06 06:50] LABS: Glucose - Point of Care 131 mg/dl (70-99)
[2025-02-06] MEDS: APRESOLINE 50 MG PO ×2 (08:02→16:20)
[2025-02-06] MEDS: CYMBALTA DELAYED RELEASE 60 MG PO (08:02)
[2025-02-06] MEDS: ELIQUIS 5 MG PO (08:02)
[2025-02-06] MEDS: XANAX 0.25 MG PO (08:02)
[2025-02-06] MEDS: TOPAMAX 50 MG PO (08:02)
[2025-02-06] MEDS: LIPITOR 80 MG PO (08:02)
[2025-02-06] MEDS: MYSOLINE 250 MG PO (08:02)
[2025-02-06] MEDS: NORVASC 5 MG PO (08:02)
[2025-02-06] MEDS: INDERAL 60 MG PO (09:18)
[2025-02-06 09:19] VITALS: BP 132/84
--- NOTE | 2025-02-06 10:07 | W.PN.HOSP.TC ---
Today's Communication/Plan
-
Please see plan
Assessment / Plan
Assessment / Plan
Physical exam:
General: Well Developed, Well Nourished and No Apparent Distress
HEENT: Normocephalic, Atraumatic and Moist Mucous Membranes
Respiratory: Clear to Auscultation; Negative Wheezes, Rales or Rhonchi
Cardiac: Regular Rhythm and S1/S2
GI: Soft, Nontender and Nondistended
Musculoskeletal: Swelling in the left knee area and bruises in the left lower extremity including left knee. No Clubbing, No Cyanosis.
Neuro: Awake, Alert and Oriented
Psych: Calm
A/P:
Syncope/near syncope:
Suspected dehydration but cannot entirely rule out dion-arrhythmia or medications contributing
Cardiology decreased beta-blockers and rest of cardiac medications doses
Cardiology also has cleared him for discharge from their standpoint today
PT eval recommended home health versus no needs
Left knee swelling:
Likely traumatic hematoma, rule out fracture and possible bursitis
X-ray of the left knee
Orthopedic consult-discussed with Ortho today via [place] text
Pending orthopedic eval could potentially discharge today, if not tomorrow
Asymptomatic sinus bradycardia:
As mentioned above propranolol has been decreased
Might do cardiac monitoring as outpatient-cardiology will continue to follow
Hypokalemia:
Replete and trend
ANN:
Resolved
Chronic HFpEF:
Resume oral diuretics at a lower dose
Continue to monitor daily weights and ins and out
Paroxysmal atrial fibrillation:
Continue anticoagulation and current decrease doses of beta-indy
Stop aspirin
Hypertension:
Decrease doses of beta-blockers and LUCY inhibitor and diuretic
Essential tremors:
On propranolol
History of CVA:
On Eliquis and statin
CT of the head unremarkable upon admission
Hyperlipidemia:
Continue home statin
Diabetes mellitus type 2:
Continue insulin sliding scale
Hemoglobin A1c 6.5
Holding metformin but can restart upon discharge
Anemia:
Mixed pattern with iron deficiency anemia and anemia of chronic disease and ?B12 deficiency
B12 supplementation
Hemoglobin stable at 9.9 today with mild drift
Depression and anxiety:
Continue antidepressants and benzodiazepine
DVT prophylaxis:
Xarelto
CODE STATUS:
Full code
Time spent 35-minutes
Anticipated Discharge: Today
Subjective/Interval History
-
Date of Service: February 06, 2025
Patient feels well today. He does complain of left knee pain and swelling and some bruises but able to ambulate. Afebrile
Objective Data
-
Labs:
Laboratory Results
02/06/25
04:09
WBC 8.3
Hgb 9.9 L
Hct 32.6 L
Plt Count 222
Sodium 142
Potassium 3.3 L
Chloride 114 H
Carbon Dioxide 24
BUN 20
Creatinine 1.1
Glucose 106 H
Calcium 8.3 L
Vital Signs:
Vital Signs
Temp Pulse Resp BP Pulse Ox
98.4 F 57 18 133/83 97
02/06/25 06:50 02/06/25 08:15 02/06/25 06:50 02/06/25 06:46 02/06/25 08:19
I&O
02/05/25 02/06/25 02/07/25
06:59 06:59 06:59
Intake Total 300 / 300
Balance 300 / 300
--- NOTE | 2025-02-06 10:16 | W.PN.CARDCBS ---
Today's Communication / Plan
-
Cardiac stable for discharge after evaluation of significant left knee swelling.
Defer evaluation of left knee to primary service they have been contacted.
Decrease lisinopril to 20 mg daily, start tomorrow
Stop aspirin. Continue Eliquis
Decrease Lasix to 20 mg daily.
Decrease propranolol to 60 mg twice daily
Plan for outpatient follow-up arranged. Plan for labs in 1 week arranged.
We will sign off.
Impression / Plan
-
Primary Drafter Apprentice: Dr. Nancy Aleman
Assessment:
Presentation with presyncope
ANN
Hypokalemia
Bradycardia with history of asymptomatic bradycardia
Chronic HFpEF
PAF
Chronic OAC with eliquis
Essential tremor on propranolol
History of CVA 2017
PFO
HLD
HTN
DM2
Depression/anxiety
Anemia
ECHO 2022: EF 55%, mild concentric LVH, trace MR, trace TR, PAP 25 to 30 mmHg
Plan:
-He is stable from a cardiac point of view today and outpatient monitor is now in place. He may be discharged from our point of view with plan as noted and follow-up as scheduled. Will defer to primary services given ongoing issues.
- Patient presents with episode of presyncope in the setting of balance issues and on Tuesday a mechanical fall with swelling of his left knee and ecchymosis
Left knee is quite swollen and has ecchymosis. Given that he is on oral anticoagulation will contact primary service for evaluation which may include x-ray.
- head CT without acute abnormalities
- Noted to have ANN on arrival, creatinine 1.5, downtrending overnight 1.1, 02/06/2025. Outpatient Lasix and lisinopril remain on hold. Not orthostatic.
Feel that he was dry on admission. Plan at this time is to reduce Lasix starting tomorrow to 20 mg daily
Reduce lisinopril to 20 mg daily
Reduce propranolol to 60 mg twice daily
Stop aspirin.
- Resume lower dose propranolol. Chronic bradycardia which is being monitored. Patient has history of asymptomatic bradycardia. He is on propranolol for marked essential tremor, followed by neurology, Dr. Ned Redman
- On my personal review of telemetry overnight, he has no evidence of significant pauses or AV block. Heart rates baseline. Occasional asymptomatic PVCs noted.
-TSH reviewed by me is normal.
- Echocardiogram stable as noted.
- Replete K
- credit report checker--placed
- of note, also anemic on both asa and eliquis. We have stopped aspirin and continue Eliquis. Defer workup to primary care provider.
Progress Note - Drafter Apprentice
Subjective
Date of Service: February 06, 2025
He is feeling better overall. He denies chest pain and palpitations. His left knee is terribly bothersome.
Objective
Labs:
02/06/25 04:09
02/06/25 04:09
Labs
Hgb 9.9 g/dL (13.0-18.0) L 02/06/25 04:09
Hct 32.6 % (39.0-52.0) L 02/06/25 04:09
Plt Count 222 10^3/uL (130-400) 02/06/25 04:09
Sodium 142 mmol/L (135-145) 02/06/25 04:09
Potassium 3.3 mmol/L (3.5-5.1) L 02/06/25 04:09
BUN 20 mg/dl (9-20) 02/06/25 04:09
Creatinine 1.1 mg/dL (0.7-1.3) 02/06/25 04:09
Glucose 106 mg/dl (70-99) H 02/06/25 04:09
Troponins
02/04/25
12:44
Troponin I 0.017
Vital Signs and I&O:
Vital Signs
Temp Pulse Resp BP Pulse Ox
98.4 F 57 18 133/83 97
02/06/25 06:50 02/06/25 08:15 02/06/25 06:50 02/06/25 06:46 02/06/25 08:19
Vital Signs
Temp Pulse Resp BP Pulse Ox
98.4 F 57 18 133/83 97
02/06/25 06:50 02/06/25 08:15 02/06/25 06:50 02/06/25 06:46 02/06/25 08:19
Intake & Output
02/04/25 02/05/25 02/06/25 02/07/25
06:59 06:59 06:59 06:59
Intake Total 300 / 300
Balance 300 / 300
Physical Exam
Physical Exam
General: Well developed, well nourished in NAD.
Heart: Non displaced PMI, RRR, no murmurs, No S3, S4, no rubs.
Lungs: Clear to auscultation bilaterally, no wheeze, rhonchi, rubs bilaterally,
normal expiratory phase..
Extremities: No clubbing, cyanosis. Left leg with ecchymosis, left knee swelling, left lower leg swollen.
Neuro: Grossly nonfocal, awake, alert and oriented x3.
--- NOTE | 2025-02-06 11:14 | VNURNOTE ---
Home Health Liaison spoke with patient to discuss [facility] nurse/therapy, visits, schedule and homebound status. He is agreeable and understands that visits at home will be 2-3 x per week to assess and teach medical management. He is familiar with
[facility]. Patient is aware that [facility] will contact them for start of care in 1-2 days after discharge from .
[facility] referral accepted in [facility].
[2025-02-06 11:50] VITALS: BP 128/80
[2025-02-06 11:53] LABS: Glucose - Point of Care 113 mg/dl (70-99)
[2025-02-06 16:14] VITALS: BP 127/75
--- NOTE | 2025-02-06 16:15 | CON.ORTHO ---
Consultation
-
Date/Time Consultation Performed: 02/06/2025 410 pm
Consultation - Orthopedics
History
HPI: 69-year-old male multiple medical comorbidities presented to the emergency department with a near syncopal episode as well as a bradycardia. He was admitted to the medical service. During his hospitalization was noted to have some swelling
and bruising noted over the left knee with associated pain. Orthopedics was consulted for further evaluation and treatment. This afternoon patient does report some pain particular ambulation anterior aspect of the knee. Does take anticoagulation
at baseline. Does report that he is able to extend his knee. He has been able to ambulate. He has been using ice.
Allergies / Home Medications
Past medical history: Essential tremor, hypertension, A-fib, hyperlipidemia, diabetes, history of CVA, ambulatory dysfunction
Past surgical history: Ureteral stents
Social history: Non-smoker, , lives with family
Family history: Not pertinent
Allergy/AdvReac Type Severity Reaction Status Date / Time
Penicillins Allergy Intermediate Hives, rash Verified 02/04/25 12:16
�Medication �Instructions �Recorded
propranolol 120 mg capsule,24 120 mg PO BID Blood Pressure 06/12/16
hr,extended release
hydralazine 50 mg tablet 50 mg PO TID #90 tabs 05/18/18
tamsulosin 0.4 mg capsule 0.4 mg PO HS Urinary Issue 08/24/19
cyanocobalamin (vitamin B-12) 1,000 mcg PO DAILY@1500 Supplement 01/19/21
1,000 mcg tablet
duloxetine 60 mg capsule,delayed 60 mg PO BID Mental Health/Anxiety 01/19/21
release
primidone 250 mg tablet 250 mg PO BID Seizures 01/19/21
amlodipine 5 mg tablet 5 mg PO DAILY Blood Pressure 06/03/22
apixaban 5 mg tablet (Eliquis) 5 mg PO BID #60 tabs 05/19/23
acetaminophen 500 mg tablet 1,000 mg PO DAILYPRN PRN mild pain 02/04/25
(Tylenol Extra Strength)
alprazolam 0.5 mg tablet,extended 0.5 mg PO DAILY Mental 02/04/25
release 24 hr Health/Anxiety
aspirin 81 mg tablet,delayed 81 mg PO DAILY@1500 Blood Clot 02/04/25
release Prevention/Tx
atorvastatin 80 mg tablet 80 mg PO DAILY High Cholesterol 02/04/25
cinnamon bark 500 mg capsule 500 mg PO .EVERY 2-3 DAYS 02/04/25
(Cinnamon) Supplement
furosemide 40 mg tablet 40 mg PO DAILYPRN PRN edema 02/04/25
ibuprofen 200 mg tablet (Advil) 400 mg PO DAILYPRN PRN mild pain 02/04/25
lisinopril 40 mg tablet 40 mg PO DAILY@1500 Blood Pressure 02/04/25
topiramate 50 mg tablet 50 mg PO BID Seizures 02/04/25
Vital Signs / Lab Results
Temp Pulse Resp BP Pulse Ox
98.2 F 58 18 128/80 96
02/06/25 11:49 02/06/25 13:15 02/06/25 11:49 02/06/25 11:50 02/06/25 11:49
02/06/25 04:09
02/06/25 04:09
10 point review systems reviewed and negative unless otherwise stated
General: Pleasant, no acute distress at rest in chair
Musculoskeletal left lower extremity
Skin intact, no erythema, ecchymotic staining anterior knee as well as lower leg
Knee range of motion 0 degrees to 120 degrees
Patient is able to strongly straight leg raise
He is able to extend knee against resistance
Fairly diffuse tenderness palpation about soft tissues anterior knee and proximal lower leg
Mild to moderate swelling noted anterior prepatellar soft tissues, no discrete fluctuance noted
No significant palpable knee effusion today
Positive EHL, FHL, ankle dorsiflexion, plantarflexion
Post cap refill distal
Diagnostic studies
X-rays left knee taken during this hospitalization independent viewed by myself show no fracture dislocations. Nonweightbearing views. Increased soft tissue shadow anterior prepatellar soft tissue
Assessment / Plan
69-year-old male multiple medical comorbidities history of CVA with residual weakness ambulatory dysfunction status post fall with likely hemorrhagic traumatic prepatellar bursitis. Did have a long discussion with the patient regarding diagnosis
and treatment options. Would not recommend any orthopedic intervention acutely. I discussed conservative treatment consisting of compression ice pain control. Certainly patient can bear full weight to his tolerance. I did explain to him this
will likely take weeks to resolve. Certainly if he continues to have issues 4 to 6 weeks, can follow-up in outpatient basis but likely would not recommend any aggressive orthopedic intervention. Please reach out with questions or concerns
[2025-02-06] MEDS: VITAMIN B-12 1000 MCG PO (16:20)
--- NOTE | 2025-02-06 16:24 | W.DCSUMMARY ---
Discharge Summary
Discharge Data
Date of Admission: 02/04/25
Date of Discharge: 02/06/25
Total time spent discharging patient (in min): 35
-
Pending Results: No
Hospital Course
69 years old male with history of CHF, A-fib, hypertension, hyperlipidemia, diabetes mellitus, depression anxiety, essential tremors, came into the hospital after presyncopal event. Cardiology consulted. Patient was noted to be bradycardic and in
ANN with creatinine of 1.5. Patient was also noticed to bradycardic but asymptomatic. Cardiology decreased the doses of propranolol and also the doses of lisinopril and furosemide. Also recommended discontinue aspirin. Renal function improved.
While remains bradycardic he has been asymptomatic. Patient also had a left knee hematoma from trauma prior to admission and we asked orthopedic to see him. He had an x-ray of the knee that shows no fractures. Ortho recommended ice and local
compressions and can continue with his home anticoagulation and no signs of infection. Patient has worked with physical therapy. We asked comp field case manager to see him for any needs upon discharge. Cardiology cleared her for discharge today. He will
be discharged in stable condition today.
Discharge duration: 35 minutes
Discharge Plan
-
Patient Disposition: Home with Home Care
Discharge Diagnosis/Procedures: Syncope. Acute kidney injury. Bradycardia. Hypokalemia. Traumatic hemorrhagic bursitis. Paroxysmal atrial fibrillation. Chronic diastolic congestive heart failure. History of stroke.
Diet: Low Cholesterol, 2 Gram Sodium and Restrict fluids to 48 oz
Activity: As tolerated
Blood Work: CBC, BMP/proBNP in 1 week
Others Tests: 7 day Bardy monitor
Specialty Instructions: Weigh Daily- Call MD for wt gain/loss 3 lbs overnight/5 lbs in 1 week
Instructions: *DCA Heart Failure Instructions
Referrals:
[facility] [Outside] - in one to two days
Michael Pastor, DO [Family Provider] - in less than 1 week
Negra Barboza PA-C [Specified Professional Personl, Cardiology] - 02/21/25 8:20 am
Referral Note: You have a cardiology follow up appointment at the [place] office with Dr. Cruz's physician creative assistant, Negra. Please call with questions.
Additional Discharge Medication Instructions: STOP aspirin. Ice, compression, and pain meds for left knee.
Prescriptions:
New
lisinopril 20 mg Tablet
20 mg PO DAILY 30 Days Qty: 30 0RF
propranolol 40 mg Tablet
60 mg PO BID 30 Days Qty: 90 0RF
furosemide 20 mg Tablet
20 mg PO DAILY 30 Days Qty: 30 0RF
ferrous sulfate 325 mg (65 mg iron) tablet,delayed release (DR/EC)
325 mg PO DAILY Qty: 30 0RF
Continued
tamsulosin 0.4 MG capsule
0.4 mg PO HS
cyanocobalamin (vitamin B-12) 1,000 MCG tablet
1,000 mcg PO DAILY@1500
primidone 250 MG tablet
250 mg PO BID
duloxetine 60 MG capsule,delayed release(DR/EC)
60 mg PO BID
amlodipine 5 mg Tablet
5 mg PO DAILY
Eliquis 5 mg Tablet
5 mg PO BID Qty: 60 0RF
atorvastatin 80 mg Tablet
80 mg PO DAILY
acetaminophen [Tylenol Extra Strength] 500 mg Tablet
1,000 mg PO DAILYPRN PRN (Reason: mild pain)
alprazolam 0.5 mg Tablet Extended Release 24 Hr
0.5 mg PO DAILY
topiramate 50 mg Tablet
50 mg PO BID
cinnamon bark [Cinnamon] 500 mg Capsule
500 mg PO .EVERY 2-3 DAYS
hydralazine 50 MG tablet
50 mg PO TID Qty: 90 0RF
Discontinued
propranolol 120 MG capsule,extended release 24 hr
120 mg PO BID
furosemide 40 mg Tablet
40 mg PO DAILYPRN PRN (Reason: edema)
aspirin 81 mg Tablet,Delayed Release (Dr/Ec)
81 mg PO DAILY@1500
ibuprofen [Advil] 200 mg Tablet
400 mg PO DAILYPRN PRN (Reason: mild pain)
lisinopril 40 mg Tablet
40 mg PO DAILY@1500
Discharge Orders:
Discharge Patient (As Directed); Ordered 02/06/25
Ordered By: Michael Kumar
Care Plan Goals
Care Plan Goals:
Problem: Readiness for enhanced knowledge related to diagnosis and treatment plan
Goal: Understand your diagnosis and treatment plan needs, including medications if applicable.
Instructions: Know your diagnosis, underlying causes and treatment plan options, including medications if applicable. Consult with your health care team to learn about your diagnosis and treatment plan, including medications if applicable.
Discharge Date and Time
Print Language: EGYPTIAN
== END 2025-02-06 17:59 | disposition home health service (06) | DRG 683 ==
LOC: IVU 18:31
PROVIDERS: Clinical Nurse Specialist Family Health; Student in an Organized Health Care Education/Training Program; ADMITTING PHYSICIAN Internal Medicine; ATTENDING PHYSICIAN Hospitalist; CONSULT PHYSICIAN Internal Medicine Cardiovascular Disease; CONSULT PHYSICIAN Orthopaedic Surgery; EMERGENCY PHYSICIAN Emergency Medicine; FAMILY PHYSICIAN Family Medicine
DX: N17.9 Acute kidney failure, unspecified (principal); I50.32 Chronic diastolic (congestive) heart failure; I69.351 Hemiplegia and hemiparesis following cerebral infarction affecting right dominant side; Q21.12 Patent foramen ovale; E87.6 Hypokalemia; M70.52 Other bursitis of knee, left knee; I48.0 Paroxysmal atrial fibrillation; I11.0 Hypertensive heart disease with heart failure; E11.9 Type 2 diabetes mellitus without complications; F32.A Depression, unspecified; F41.9 Anxiety disorder, unspecified; E78.00 Pure hypercholesterolemia, unspecified; G25.0 Essential tremor; Z87.442 Personal history of urinary calculi; N40.0 Benign prostatic hyperplasia without lower urinary tract symptoms; Z88.0 Allergy status to penicillin; Z79.82 Long term (current) use of aspirin; Z79.899 Other long term (current) drug therapy; Z79.84 Long term (current) use of oral hypoglycemic drugs; Z79.01 Long term (current) use of anticoagulants; Z68.36 Body mass index [BMI] 36.0-36.9, adult; E66.812 Obesity, class 2; I49.3 Ventricular premature depolarization; S80.02XA Contusion of left knee, initial encounter; W01.0XXA Fall on same level from slipping, tripping and stumbling without subsequent striking against object, initial encounter; Z82.49 Family history of ischemic heart disease and other diseases of the circulatory system; Z91.81 History of falling
CPT/HCPCS: 70450; 73560; 80048; 80053; 82728; 82746; 82962; 83036; 83540; 83550; 83735; 84443; 84484; 85025; 93005; 93306; 97163; 99285

== ENCOUNTER 2025-03-18 21:58 | Inpatient (IN) | payer OTHER, SELFPAY ==
[2025-03-18 14:00] VITALS: BP 155/91
[2025-03-18 14:35] LABS: ALT (SGPT) 27 U/L (0-50); AST (SGOT) 25 U/L (17-59); Albumin 4.1 g/dl (3.5-5.0); Alkaline Phosphatase 126 U/L (38-126); Blood Urea Nitrogen 19 mg/dl (9-20); Calcium 9.0 mg/dl (8.4-10.2); Carbon Dioxide 28 mmol/L (22-30); Chloride 110 mmol/L (98-107); Glucose 126 mg/dl (70-99); Lipase 202 U/L (23-300); Potassium 4.1 mmol/L (3.5-5.1); Sodium 144 mmol/L (135-145); Total Protein 6.6 g/dl (6.3-8.2); eGFR > 60.00
[2025-03-18 15:30] LABS: Urine Character Slightly Cloudy (Clear)
[2025-03-18 16:16] LABS: Urine Red Blood Cell 26-30 /HPF (0-2); Urine White Cell >100 /HPF (0-5)
[2025-03-18 17:56] VITALS: BMI 35.9
[2025-03-18 18:08] VITALS: BP 131/91
--- NOTE | 2025-03-18 18:15 | ED.GENMED ---
History of Present Illness
<Will Flores PA-C - Last Filed: 03/18/25 18:17>
General
Chief Complaint: Back Pain
Source: patient
Exam Limitations: none
Time Seen by Provider: 03/18/25 18:05
History of Present Illness
History of Present Illness:
69-year-old male presents complaining of worsening right flank and lower abdominal pain over the past several days. He has had intermittent discomfort over the past month or so. No known injury. No numbness or tingling.
Past History
<Will Flores PA-C - Last Filed: 03/18/25 18:17>
Past History
ED Past Medical History: CVA, HTN and NIDDM
ED Past Surgical History: None
Social History
Tobacco: Non-smoker
Alcohol: None
Drug: None
Personal:
Living: with family
Family History
Family History: Other
Phy Exam
<Saagr Butcher PA-C - Last Filed: 03/18/25 22:10>
Physical Exam
Physical Exam:
GEN: Well appearing, NAD, WDWN
HEENT: Oral mucosa moist, no scleral icterus
Cardiac: Bradycardic, regular
Lung: No respiratory distress, no tachypnea
MSK: No gross deformity or injuries
Skin: Good color, no pallor or jaundice, no rashes
Neuro: AO x3, moves all extremities freely
Psych: Calm, cooperative
Course
<Will Flores PA-C - Last Filed: 03/18/25 18:17>
Orders/Labs/Results
Orders:
Orders
03/18/25 14:04
Electrocardiogram (*1) Urgent
Reason for Study: Bradycardia / Tachycardia
EKG- Treatment ONCE
03/18/25 14:16
Comprehensive Metabolic Panel Urgent
Lipase Urgent
03/18/25 14:56
Urinalysis Reflex To Culture Urgent
Date Specimen was Collected: 03/18/25
Time Specimen was Collected: 14:04
Urine Microscopic Reflex Cult Urgent
Urine Culture Urgent
REVA Source: U
Specimen Description:
Date Specimen was Collected: 03/18/25
Time Specimen was Collected: 14:04
03/18/25 18:14
CT Abd/pelvis W Iv Cont Urgent
Comment:
Reason For Exam: left mid abdominal pain
03/18/25 19:03
Complete Blood Count/With Diff Urgent
03/18/25 20:09
CefTRIAXone [Rocephin] 1,000 mg IV NOW STA
03/18/25 20:13
Sterile Water [Sterile Water For Injection] 10 ml .ROUTE .STK-MED ONE
03/18/25 21:19
Linezolid 600 mg/300 ml [Zyvox 600 mg] 300 ml IV NOW
03/18/25 21:39
Admit/Transfer Patient As Directed
Co-Sign Provider:
Level of Care: Inpatient admission
Assign to:: Medical/Surgical
Physician / Group: delphine
Diagnosis: UTI/nephroliths
Reason for Hospitalization: UTI/nephroliths
Expected length of stay greater than two midnights?: Yes
ELOS- Estimated Length of Stay in days: 2
I certify the patient meets the requirements for IP care: Yes
Code Status As Directed
Resuscitation Status: Full Code
PRN Pain Medication Management As Directed
May give lesser potent ordered pain med per pt: Yes
preference::
Protocol:: Medication orders for pain may be administered in a
manner that supports deferring to patient preference
when the pt is:
- Requesting an ordered lesser potent pain medication.
Least to most potent pain medications are defined
as: acetaminophen < NSAID < tramadol < opioids
(morphine, oxycodone, hydromorphone).
- Requesting a lesser dose of the same medication IF
ORDERED.
- Requesting a less intrusive route of administration
if both routes are prescribed by the provider (PO <
IV).
Abnormal Lab Results
03/18/25 03/18/25 03/18/25
14:16 14:56 19:03
Hgb 12.5 L g/dL
(13.0-18.0)
MCV 75.0 L fL
(80.0-94.0)
MCH 22.9 L pg
(27.0-31.0)
MCHC 30.5 L g/dL
(33.0-37.0)
RDW 23.7 H %
(11.5-14.5)
Absolute Monos (auto) 0.7 H 10^3/uL
(0.1-0.6)
Lymphocytes % 19.6 L %
(20.5-51.1)
Chloride 110 H mmol/L
(98-107)
Glucose 126 H mg/dl
(70-99)
Ur Occult Blood Reflex 2+ A
(Negative)
Leukocyte Esterase Rfl 3+ A
(Negative)
Urine RBC 26-30 A /HPF
(0-2)
Urine WBC (Reflex) >100 A /HPF
(0-5)
Urine Bacteria (Reflex) Moderate A
(Negative)
Urine Albumin (Reflex) 2+ A
(Neg - Trace)
03/18/25 19:03
03/18/25 14:16
Vital Signs
Initial and Last Documented VS:
Initial Vital Signs
Temp Pulse Resp BP Pulse Ox
98.7 F 45 16 155/91 96
03/18/25 14:00 03/18/25 14:00 03/18/25 14:00 03/18/25 14:00 03/18/25 14:00
Last Documented Vital Signs
Temp Pulse Resp BP Pulse Ox
98.7 F 57 18 160/91 97
03/18/25 14:00 03/18/25 20:25 03/18/25 20:25 03/18/25 21:19 03/18/25 21:45
<Sagar Butcher PA-C - Last Filed: 03/18/25 22:10>
Orders/Labs/Results
Orders:
Orders
03/18/25 14:04
Electrocardiogram (*1) Urgent
Reason for Study: Bradycardia / Tachycardia
EKG- Treatment ONCE
03/18/25 14:16
Comprehensive Metabolic Panel Urgent
Lipase Urgent
03/18/25 14:56
Urinalysis Reflex To Culture Urgent
Date Specimen was Collected: 03/18/25
Time Specimen was Collected: 14:04
Urine Microscopic Reflex Cult Urgent
Urine Culture Urgent
REVA Source: U
Specimen Description:
Date Specimen was Collected: 03/18/25
Time Specimen was Collected: 14:04
03/18/25 18:14
CT Abd/pelvis W Iv Cont Urgent
Comment:
Reason For Exam: left mid abdominal pain
03/18/25 19:03
Complete Blood Count/With Diff Urgent
03/18/25 20:09
CefTRIAXone [Rocephin] 1,000 mg IV NOW STA
03/18/25 20:13
Sterile Water [Sterile Water For Injection] 10 ml .ROUTE .STK-MED ONE
03/18/25 21:19
Linezolid 600 mg/300 ml [Zyvox 600 mg] 300 ml IV NOW
03/18/25 21:39
Admit/Transfer Patient As Directed
Co-Sign Provider:
Level of Care: Inpatient admission
Assign to:: Medical/Surgical
Physician / Group: delphine
Diagnosis: UTI/nephroliths
Reason for Hospitalization: UTI/nephroliths
Expected length of stay greater than two midnights?: Yes
ELOS- Estimated Length of Stay in days: 2
I certify the patient meets the requirements for IP care: Yes
Code Status As Directed
Resuscitation Status: Full Code
PRN Pain Medication Management As Directed
May give lesser potent ordered pain med per pt: Yes
preference::
Protocol:: Medication orders for pain may be administered in a
manner that supports deferring to patient preference
when the pt is:
- Requesting an ordered lesser potent pain medication.
Least to most potent pain medications are defined
as: acetaminophen < NSAID < tramadol < opioids
(morphine, oxycodone, hydromorphone).
- Requesting a lesser dose of the same medication IF
ORDERED.
- Requesting a less intrusive route of administration
if both routes are prescribed by the provider (PO <
IV).
Abnormal Lab Results
03/18/25 03/18/25 03/18/25
14:16 14:56 19:03
Hgb 12.5 L g/dL
(13.0-18.0)
MCV 75.0 L fL
(80.0-94.0)
MCH 22.9 L pg
(27.0-31.0)
MCHC 30.5 L g/dL
(33.0-37.0)
RDW 23.7 H %
(11.5-14.5)
Absolute Monos (auto) 0.7 H 10^3/uL
(0.1-0.6)
Lymphocytes % 19.6 L %
(20.5-51.1)
Chloride 110 H mmol/L
(98-107)
Glucose 126 H mg/dl
(70-99)
Ur Occult Blood Reflex 2+ A
(Negative)
Leukocyte Esterase Rfl 3+ A
(Negative)
Urine RBC 26-30 A /HPF
(0-2)
Urine WBC (Reflex) >100 A /HPF
(0-5)
Urine Bacteria (Reflex) Moderate A
(Negative)
Urine Albumin (Reflex) 2+ A
(Neg - Trace)
03/18/25 19:03
03/18/25 14:16
Vital Signs
Initial and Last Documented VS:
Initial Vital Signs
Temp Pulse Resp BP Pulse Ox
98.7 F 45 16 155/91 96
03/18/25 14:00 03/18/25 14:00 03/18/25 14:00 03/18/25 14:00 03/18/25 14:00
Last Documented Vital Signs
Temp Pulse Resp BP Pulse Ox
98.7 F 57 18 160/91 97
03/18/25 14:00 03/18/25 20:25 03/18/25 20:25 03/18/25 21:19 03/18/25 21:45
<Will Flores PA-C - Last Filed: 03/18/25 18:17>
*Pulse Oximetry
SaO2: 96
Oxygen Mode of Delivery: Room air
<Sagar Butcher PA-C - Last Filed: 03/18/25 22:10>
*Pulse Oximetry
Patient hypoxic: no
*Critical Care Note
Total Time (30-74mins, 75-104mins- exclusive of procedures): Not Applicable
<Sagar Butcher PA-C - Last Filed: 03/18/25 22:10>
Update Note
Update Note:
Assumed care of patient from Cleo Faulkner PA-C pending CT results. CT shows no evidence for obstructive uropathy. Patient clinically most likely presenting with pyelonephritis however he has a history of enterococcal UTI, most recently culture was
VRE. Given the complexity of his UTI will admit for IV antibiotics, will treat with linezolid based on last culture result
ED Attending Note
<Will Flores PA-C - Last Filed: 03/18/25 18:17>
-
Portions of this chart may have been created with voice recognition software.� Occasional wrong word or��sound alike� substitutions may have occurred due to the inherent limitations of voice recognition software.
Discharge Plan
Departure
Patient Disposition: Admit
Date of Disposition: 03/18/25
Time of Disposition: 20:54
Admit to: Med/Surg
Presentation/result/management discussed w/ accepting MD/DO: Hospitalist
Patient with high blood pressure during this ER visit?: No
Discharge Problem:
Acute pyelonephritis
Interventions
Interventions:
*Risk Screen - Suicide Last Done: 03/18/25 17:58
*General Assessment Last Done: 03/18/25 17:58
*Neglect/Abuse Screening Last Done: 03/18/25 17:58
*ED- Fall Risk Assessment Last Done: 03/18/25 17:58
*ED COVID-19 Vaccine History Last Done: 03/18/25 17:58
ED-Musculoskeletal Assessment Last Done: 03/18/25 17:58
[2025-03-18 18:33] VITALS: BP 131/91
[2025-03-18 19:22] LABS: Hematocrit 41.0 % (39.0-52.0); Hemoglobin 12.5 g/dL (13.0-18.0); Mean Corp Hgb Conc. 30.5 g/dL (33.0-37.0); Mean Corpuscular Volume 75.0 fL (80.0-94.0); Nucleated Red Blood Cells % 0 % (-); Platelet Count 223 10^3/uL (130-400); Red Cell Dist. Width 23.7 % (11.5-14.5)
[2025-03-18] MEDS: ROCEPHIN 1000 MG IV (20:16)
[2025-03-18 21:19] VITALS: BP 160/91
[2025-03-18] MEDS: ZYVOX 600 MG 300 IV (21:34)
--- NOTE | 2025-03-18 21:43 | HPS.HSE ---
Family Physician
-
Family Physician: Michael Pastor
Chief Complaint
-
right flank pain
History of Present Illness
69-year-old male past medical history of chronic HFpEF, paroxysmal atrial fibrillation on Xarelto, asymptomatic sinus bradycardia, hypertension, essential tremor, CVA, hyperlipidemia, type 2 diabetes, anemia, anxiety/depression, nephrolithiasis
presenting with right lower back pain for the past month occurs intermittently. Pain does not radiate to the abdomen or groin. Pain is described as aching and not severe but was severe today. He denies any fevers or chills. Denies nausea or
vomiting. Denies urinary burning or frequency or blood in the urine.
He had a fall today with pain behind his left knee.
He has been having a rash recently on his chest and recently saw dermatology who prescribed him a cream. He does not remember if the cream is steroid or antibacterial but states that it made the rash worse and progressed to his back. It is itchy
and slightly painful.
He has been constipated recently although he did have a bowel movement today.
Medical History
Past Medical History
Past Medical History: Reports Other (chronic HFpEF, paroxysmal atrial fibrillation on Xarelto, asymptomatic sinus bradycardia, hypertension, essential tremor, CVA, hyperlipidemia, type 2 diabetes, anemia, anxiety/depression, nephrolithiasis )
Past Surgical History: Reports None
Social History
Tobacco: Non-smoker
Alcohol: None
Drug: None
Family History
Family History: Not pertinent
Allergies / Home Medications
Allergies reflects when Allergies were last updated in [facility].
Home Medications with original date entered in [facility]
Allergy/Medication List:
Allergies
Allergy/AdvReac Type Severity Reaction Status Date / Time
Penicillins Allergy Intermediate Hives, rash Verified 03/18/25 14:04
Home Medications
hydralazine 50 mg tablet 50 mg PO TID #90 tabs 05/18/18
tamsulosin 0.4 mg capsule 0.4 mg PO HS Urinary Issue 08/24/19
cyanocobalamin (vitamin B-12) 1,000 mcg tablet 1,000 mcg PO DAILY@1500 Supplement 01/19/21
duloxetine 60 mg capsule,delayed release 60 mg PO BID Mental Health/Anxiety 01/19/21
primidone 250 mg tablet 250 mg PO BID Seizures 01/19/21
amlodipine 5 mg tablet 5 mg PO DAILY Blood Pressure 06/03/22
apixaban 5 mg tablet (Eliquis) 5 mg PO BID #60 tabs 05/19/23
atorvastatin 80 mg tablet 80 mg PO DAILY High Cholesterol 02/04/25
topiramate 50 mg tablet 50 mg PO BID Seizures 02/04/25
ferrous sulfate 325 mg (65 mg iron) tablet,delayed release 325 mg PO DAILY #30 tabs 02/06/25
lisinopril 20 mg tablet 20 mg PO DAILY 30 days #30 tabs 02/06/25
propranolol 40 mg tablet 60 mg (1.5 x 40 mg) PO BID 30 days #90 tabs 02/06/25
furosemide 20 mg tablet 20 mg PO DAILYPRN PRN FLUID 03/18/25
Review of Systems
-
History Source: Patient
A 12 point ROS was completed and negative except as noted: Yes
Constitutional: Reports No Symptoms
EENT: Reports No Symptoms
Respiratory: Reports No Symptoms
Cardiac: Reports No Symptoms
Abdomen/GI: Reports See HPI
: Reports No Symptoms
Musculoskeletal: Reports No Symptoms
Skin: Reports See HPI
Neurological: Reports No Symptoms
Endocrine: Reports No Symptoms
Hematologic/Lymphatic: Reports No Symptoms
Psych: Reports No Symptoms
Physical Exam
Vital Signs
Vital Signs
Temp Pulse Resp BP Pulse Ox
98.7 F 57 18 131/91 97
03/18/25 14:00 03/18/25 20:25 03/18/25 20:25 03/18/25 18:33 03/18/25 21:15
Physical Exam
General: Well Developed, Well Nourished and No Apparent Distress
HEENT: NormoCephalic, Moist mucous membranes and Atraumatic
Respiratory: Clear
Cardiac: S1/S2 and Regular Rhythm; No Murmur or Rub
GI: Soft, Non Tender, Non Distended and Normal Bowel Sounds; No Organomegaly
Rectal: Deferred by Provider
Musculoskeletal: No Clubbing, No Cyanosis and No Edema
Skin: No Rash
Neuro: Nonfocal/grossly intact
Laboratory Results
-
03/18/25 19:03
03/18/25 14:16
Laboratory Results
Total Bilirubin 0.6 mg/dl (0.2-1.3) 03/18/25 14:16
AST 25 U/L (17-59) 03/18/25 14:16
ALT 27 U/L (0-50) 03/18/25 14:16
Alkaline Phosphatase 126 U/L (38-126) 03/18/25 14:16
Lipase 202 U/L (23-300) 03/18/25 14:16
Data Reviewed
-
Lab Data: Labs Reviewed by me
Old Records: Reviewed
Impression/Plan
-
IMPRESSION:
PLAN:
# Right flank pain secondary to urinary tract infection/bilateral nephroliths
# History of Enterococcus faecium UTI
- UA shows greater than 100 WBC, negative nitrates, +3 leukocyte esterase
- CT abdomen pelvis shows no evidence of ureteral calculus, bilateral nephroliths, mild to moderate distention of the rectum with stool without evidence of stercoral colitis
- Prior urine culture shows vancomycin-resistant Enterococcus Faecium sensitive to linezolid
-Urine culture pending
- Linezolid for now, can de-escalate as able
- Consider urology if no improvement with antibiotic, although intervention should not be necessary for nephroliths
# Excoriating/folliculitis rash on chest
- will bring cream that they have been using which has made the rash worse
# Fall with left knee injury
- Tylenol, morphine for pain
# Constipation
-Had bowel movement today
- MiraLAX as needed
History of nephrolithiasis status post lithotripsy/stone extraction and stent placement
Chronic HFpEF
- Continue Lasix
Paroxysmal atrial fibrillation
- Continue Eliquis
Asymptomatic sinus bradycardia
Essential hypertension
- Continue amlodipine, hydralazine, lisinopril
Essential tremor
- Continue primidone, propranolol, Topamax
CVA
Hyperlipidemia
- Continue statin
Type 2 diabetes
- Not on medication
Chronic anemia
- Continue ferrous sulfate
Anxiety/depression
- Continue alprazolam, duloxetine
BPH
- Continue tamsulosin
Full code
DVT prophylaxis�Eliquis
Regular diet
[2025-03-18 23:00] VITALS: BP 189/97
[2025-03-18 23:00] LABS: Anisocytosis 1+; Hypochromasia 1+; Normal RBC Morphology No; Ovalocytes 1+
[2025-03-18 23:26] VITALS: BMI 34.9
[2025-03-18] MEDS: APRESOLINE 50 MG PO (23:42)
[2025-03-18] MEDS: FLOMAX 0.4 MG PO (23:42)
[2025-03-18] MEDS: TYLENOL 650 MG PO (23:42)
[2025-03-19] MEDS: MORPHINE SULFATE 1 MG IV (00:59)
--- NOTE | 2025-03-19 01:17 | W.PN.UPDATE ---
Update Note
Progress Note Update
PT c/o bilateral knee pain from fall that occured while in ED. He states that when he fell he landed on knees. It was not mentioned to RN during report nor was it mention in ED notes.
Will check xray bilat knees.
[2025-03-19 03:54] VITALS: BMI 34.9
--- NOTE | 2025-03-19 06:17 | PTCARENOTE ---
Addendum entered by Carmencita Pulido RN 03/19/25 06:20:
03/18 @ 2200
Original Note:
Pt transferred to [facility]. Pt was able to stand on scale and walk to bed. Pt AAOx3. Oriented to room and unit. Pt reported he fell in ED c/o bilateral knee pain. HOSPICE MASSAGE THERAPIST notified. Xray ordered for AM. PRN pain medication administered with positive effect.
Bed alarm in place. Safety precautions in place. Call henry within reach.
[2025-03-19 07:00] VITALS: BP 160/89
[2025-03-19] MEDS: INDERAL 60 MG PO ×2 (07:46→19:53)
[2025-03-19] MEDS: MYSOLINE 250 MG PO ×2 (07:46→19:53)
[2025-03-19] MEDS: LIPITOR 80 MG PO (07:47)
[2025-03-19] MEDS: TOPAMAX 50 MG PO ×2 (07:47→19:54)
[2025-03-19] MEDS: ELIQUIS 5 MG PO ×2 (07:47→19:52)
[2025-03-19] MEDS: FEOSOL 325 MG PO (07:47)
[2025-03-19] MEDS: APRESOLINE 50 MG PO ×3 (07:47→21:17)
[2025-03-19] MEDS: NORVASC 5 MG PO (07:48)
[2025-03-19] MEDS: ZESTRIL 20 MG PO (07:48)
[2025-03-19] MEDS: TYLENOL 650 MG PO ×2 (07:52→12:46)
--- NOTE | 2025-03-19 08:29 | VNURNOTE ---
Chart reviewed. Patient is current with [facility]. Will continue to follow hospital course and DC plans.
[2025-03-19] MEDS: SENOKOT-S 1 TABLET PO ×2 (08:42→19:52)
[2025-03-19] MEDS: MIRALAX 17 GRAMS PO (08:42)
[2025-03-19 09:13] LABS: ALT (SGPT) 27 U/L (0-50); AST (SGOT) 24 U/L (17-59); Albumin 4.0 g/dl (3.5-5.0); Alkaline Phosphatase 139 U/L (38-126); Blood Urea Nitrogen 13 mg/dl (9-20); Calcium 8.5 mg/dl (8.4-10.2); Carbon Dioxide 30 mmol/L (22-30); Chloride 109 mmol/L (98-107); Estimated Creatinine Clearance 82 ml/min; Glucose 118 mg/dl (70-99); Potassium 3.1 mmol/L (3.5-5.1); Sodium 143 mmol/L (135-145); Total Protein 6.4 g/dl (6.3-8.2); eGFR > 60.00
[2025-03-19 09:21] LABS: Hematocrit 44.4 % (39.0-52.0); Hemoglobin 13.2 g/dL (13.0-18.0); Mean Corp Hgb Conc. 29.7 g/dL (33.0-37.0); Mean Corpuscular Volume 76.6 fL (80.0-94.0); Nucleated Red Blood Cells % 0 % (-); Platelet Count 236 10^3/uL (130-400); Red Cell Dist. Width 24.1 % (11.5-14.5)
[2025-03-19] MEDS: KCL 40 MEQ PO (09:40)
[2025-03-19] MEDS: ZYVOX 600 MG 300 IV ×2 (09:40→21:17)
--- NOTE | 2025-03-19 11:22 | CM ---
manager policy reviewed patient's chart and met with patient and patient lives with his spouse in a 2 story home, with 3 steps to enter, patient is independent with adl's and uses a cane with ambulation, patient is current with [facility], and plan is to
return to home with [facility].
PCP: Michael Pastor
Pharmacy: [facility] in [place]
Plan; Home with [facility] when stable.
--- NOTE | 2025-03-19 12:23 | W.PN.HOSP.TC ---
Today's Communication/Plan
-
await Ucx [id number] abx based on culture data
knee xray /ice/pain control
venous doppler pending
Assessment / Plan
Assessment / Plan
General: Well Developed, Well Nourished and No Apparent Distress
HEENT: NormoCephalic, Moist mucous membranes and Atraumatic
Respiratory: Clear
Cardiac: S1/S2 and Regular Rhythm; No Murmur or Rub
GI: Soft, Non Tender, Non Distended and Normal Bowel Sounds; No Organomegaly
Rectal: Deferred by Provider
Musculoskeletal: No Clubbing, No Cyanosis. 2+ LLE pitting edema. B/L Melo ?venous stasis changes
Skin: No Rash
Neuro: Nonfocal/grossly intact
# Right flank pain secondary to urinary tract infection vs. severe constipation vs. MSK pain.
# History of Enterococcus faecium UTI
- UA shows greater than 100 WBC, negative nitrates, +3 leukocyte esterase
- CT abdomen pelvis shows no evidence of ureteral calculus, bilateral nephroliths, mild to moderate distention of the rectum with stool without evidence of stercoral colitis
- Prior urine culture shows vancomycin-resistant Enterococcus Faecium sensitive to linezolid
- Urine culture pending
- Linezolid for now, can de-escalate as able
- Started aggressive bowel regimen senna/colace/miralax/dulcolax.
# Excoriating/folliculitis rash on chest
-Cont w/ OP derm f/u
# Fall with left knee injury
-Knee xray pending
-venous doppler pending
History of nephrolithiasis status post lithotripsy/stone extraction and stent placement
Chronic HFpEF
- on prn Lasix regimen
Paroxysmal atrial fibrillation
- Continue Eliquis
Asymptomatic sinus bradycardia
Essential hypertension
- Continue amlodipine, hydralazine, lisinopril
Essential tremor
- Continue primidone, propranolol, Topamax
CVA
Hyperlipidemia
- Continue statin
Type 2 diabetes
- Not on medication
-off metformin due to S/E
Chronic anemia
- Continue ferrous sulfate
Anxiety/depression
- Continue alprazolam, duloxetine
BPH
- Continue tamsulosin
Hypokalemia
-replete and monitor
Full code
DVT prophylaxis�Eliquis
Anticipated Discharge: > 48 hours
Subjective/Interval History
-
Date of Service: March 19, 2025
states of left leg pain
Objective Data
-
Labs:
Laboratory Results
03/19/25
08:08
WBC 8.7
Hgb 13.2
Hct 44.4
Plt Count 236
Sodium 143
Potassium 3.1 L
Chloride 109 H
Carbon Dioxide 30
BUN 13
Creatinine 1.1
Glucose 118 H
Calcium 8.5
Total Bilirubin 0.5
AST 24
ALT 27
Alkaline Phosphatase 139 H
Vital Signs:
Vital Signs
Temp Pulse Resp BP Pulse Ox
97.6 F 64 20 160/89 95
03/19/25 07:00 03/19/25 07:00 03/19/25 07:00 03/19/25 07:00 03/19/25 07:00
I&O
03/18/25 03/19/25 03/20/25
06:59 06:59 06:59
Intake Total 480 / 480
Output Total 700 / 700
Balance -220 / -220
Data Reviewed
-
Total Time Spent with Patient (in minutes): 55
--- NOTE | 2025-03-19 12:51 | PTCARENOTE ---
Pt c/o left leg pain states it is mild a '2' out of 10 . Tylenol provided with good results . X ray and ultrasound pending . Pt uses single point cane at home and here im hospital, no difficulty with ambulation , no difficulty bearing weight.
Bilat lower extremities with some edema , hospitalist notified. Pt states he has a history of CHF - teaching provided .
[2025-03-19 15:00] VITALS: BP 118/68
[2025-03-19] MEDS: VITAMIN B-12 1000 MCG PO (15:00)
[2025-03-19] MEDS: FLOMAX 0.4 MG PO (21:17)
[2025-03-19 23:00] VITALS: BP 138/69
[2025-03-20 03:05] VITALS: BMI 34.8
[2025-03-20 07:00] VITALS: BP 140/80
[2025-03-20] MEDS: MIRALAX 17 GRAMS PO (07:58)
[2025-03-20] MEDS: INDERAL 60 MG PO ×2 (07:59→20:45)
[2025-03-20] MEDS: LIPITOR 80 MG PO (07:59)
[2025-03-20] MEDS: TOPAMAX 50 MG PO ×2 (08:00→20:44)
[2025-03-20] MEDS: FEOSOL 325 MG PO (08:00)
[2025-03-20] MEDS: APRESOLINE 50 MG PO ×3 (08:01→22:42)
[2025-03-20] MEDS: ELIQUIS 5 MG PO ×2 (08:01→21:21)
[2025-03-20] MEDS: ZESTRIL 20 MG PO (08:01)
[2025-03-20] MEDS: SENOKOT-S 1 TABLET PO ×2 (08:01→20:44)
[2025-03-20] MEDS: NORVASC 5 MG PO (08:02)
[2025-03-20] MEDS: MYSOLINE 250 MG PO ×2 (08:02→20:44)
[2025-03-20 09:15] VITALS: BP 128/78; BP 132/83; BP 137/76; BP 139/77; PULSE 52; PULSE 53; PULSE 56
[2025-03-20] MEDS: ZYVOX 600 MG 300 IV ×2 (09:23→22:40)
[2025-03-20 10:17] LABS: Blood Urea Nitrogen 21 mg/dl (9-20); Calcium 8.8 mg/dl (8.4-10.2); Carbon Dioxide 28 mmol/L (22-30); Chloride 109 mmol/L (98-107); Estimated Creatinine Clearance 70 ml/min; Glucose 130 mg/dl (70-99); Potassium 3.9 mmol/L (3.5-5.1); Sodium 142 mmol/L (135-145); eGFR 59.10
--- NOTE | 2025-03-20 10:18 | CM ---
Home with [facility] when stable.
Plan; Home with spouse and [facility] when stable.
[2025-03-20] MEDS: LASIX 20 MG PO (10:53)
--- NOTE | 2025-03-20 12:13 | W.PN.HOSP.TC ---
Today's Communication/Plan
-
Will provide Lasix home regimen dose today
Continue with IV antibiotics and await urine culture data
Continue with aggressive bowel regimen
Assessment / Plan
Assessment / Plan
General: Well Developed, Well Nourished and No Apparent Distress
HEENT: NormoCephalic, Moist mucous membranes and Atraumatic
Respiratory: Clear
Cardiac: S1/S2 and Regular Rhythm; No Murmur or Rub
GI: Soft, Non Tender, Non Distended and Normal Bowel Sounds; No Organomegaly
Rectal: Deferred by Provider
Musculoskeletal: No Clubbing, No Cyanosis. 2+ LLE pitting edema. B/L Melo ?venous stasis changes
Skin: No Rash
Neuro: Nonfocal/grossly intact
# Right flank pain secondary to urinary tract infection vs. severe constipation vs. MSK pain.
# History of Enterococcus faecium UTI
- UA shows greater than 100 WBC, negative nitrates, +3 leukocyte esterase
- CT abdomen pelvis shows no evidence of ureteral calculus, bilateral nephroliths, mild to moderate distention of the rectum with stool without evidence of stercoral colitis
- Prior urine culture shows vancomycin-resistant Enterococcus Faecium sensitive to linezolid
- Urine culture preliminary Enterococcus
- Linezolid for now, can de-escalate as able
- Started aggressive bowel regimen senna/colace/miralax/dulcolax.
# Excoriating/folliculitis rash on chest
-Cont w/ OP derm f/u
# Fall with left knee injury
-Knee xray no acute fracture bilaterally
-venous doppler negative for DVT
- Continue with ice and Tylenol. PT eval
History of nephrolithiasis status post lithotripsy/stone extraction and stent placement
Chronic HFpEF
- on prn Lasix regimen
Paroxysmal atrial fibrillation
- Continue Eliquis
Asymptomatic sinus bradycardia
Essential hypertension
- Continue amlodipine, hydralazine, lisinopril
Essential tremor
- Continue primidone, propranolol, Topamax
Hyperlipidemia
- Continue statin
Type 2 diabetes
- Not on medication
-off metformin due to S/E
Chronic anemia
- Continue ferrous sulfate
Anxiety/depression
- Continue alprazolam, duloxetine
BPH
- Continue tamsulosin
Hypokalemia
-replete and monitor
Full code
DVT prophylaxis�Eliquis
Anticipated Discharge: 24 - 48 hours
Subjective/Interval History
-
Date of Service: March 20, 2025
states had bm yesterday
improvement in knee pain
Objective Data
-
Labs:
Laboratory Results
03/20/25
08:41
Sodium 142
Potassium 3.9 D
Chloride 109 H
Carbon Dioxide 28
BUN 21 H
Creatinine 1.3
Glucose 130 H
Calcium 8.8
Vital Signs:
Vital Signs
Temp Pulse Resp BP Pulse Ox
98.9 F 57 18 140/80 96
03/20/25 07:00 03/20/25 07:00 03/20/25 07:00 03/20/25 07:00 03/20/25 07:00
I&O
03/19/25 03/20/25 03/21/25
06:59 06:59 06:59
Intake Total 480 / 480 1740 / 1740
Output Total 700 / 700 300 / 300
Balance -220 / -220 1440 / 1440
[2025-03-20 16:12] VITALS: BP 118/69
[2025-03-20] MEDS: VITAMIN B-12 1000 MCG PO (16:18)
[2025-03-20] MEDS: FLOMAX 0.4 MG PO (22:39)
[2025-03-20 22:59] VITALS: BP 150/85
[2025-03-21 03:56] VITALS: BMI 34.8
[2025-03-21] MEDS: MYSOLINE 250 MG PO (08:20)
[2025-03-21] MEDS: ELIQUIS 5 MG PO (08:20)
[2025-03-21] MEDS: INDERAL PO (08:20)
[2025-03-21] MEDS: APRESOLINE 50 MG PO (08:20)
[2025-03-21] MEDS: LIPITOR 80 MG PO (08:20)
[2025-03-21] MEDS: FEOSOL 325 MG PO (08:20)
[2025-03-21] MEDS: NORVASC 5 MG PO (08:20)
[2025-03-21 08:21] VITALS: BP 133/71
[2025-03-21] MEDS: TOPAMAX 50 MG PO (08:21)
[2025-03-21] MEDS: ZESTRIL 20 MG PO (08:21)
[2025-03-21] MEDS: SENOKOT-S PO (08:23)
[2025-03-21] MEDS: MIRALAX PO (08:23)
[2025-03-21 08:41] LABS: Blood Urea Nitrogen 22 mg/dl (9-20); Calcium 8.5 mg/dl (8.4-10.2); Carbon Dioxide 27 mmol/L (22-30); Chloride 110 mmol/L (98-107); Estimated Creatinine Clearance 70 ml/min; Glucose 107 mg/dl (70-99); Potassium 3.5 mmol/L (3.5-5.1); Sodium 142 mmol/L (135-145); eGFR 59.10
[2025-03-21] MEDS: ZYVOX 600 MG 300 IV (09:10)
[2025-03-21 09:25] LABS: Hematocrit 40.1 % (39.0-52.0); Hemoglobin 12.0 g/dL (13.0-18.0); Mean Corp Hgb Conc. 29.9 g/dL (33.0-37.0); Mean Corpuscular Volume 76.7 fL (80.0-94.0); Nucleated Red Blood Cells % 0 % (-); Platelet Count 237 10^3/uL (130-400); Red Cell Dist. Width 23.5 % (11.5-14.5)
--- NOTE | 2025-03-21 10:10 | CM ---
Addendum entered by Asia Easton 03/21/25 11:41:
PT d/c'd today. Is current with [facility], they are aware of his discharge.
Original Note:
Chart reviewed. Met with patient bedside. Continues on IV ABX. No change to d/c plan. Possible d/c today.
Plan: D/C to home with [facility]
--- NOTE | 2025-03-21 11:23 | W.PN.HOSP.TC ---
Today's Communication/Plan
-
dc home vn
po abx
increase fiber intake
Assessment / Plan
Assessment / Plan
General: Well Developed, Well Nourished and No Apparent Distress
HEENT: NormoCephalic, Moist mucous membranes and Atraumatic
Respiratory: Clear
Cardiac: S1/S2 and Regular Rhythm; No Murmur or Rub
GI: Soft, Non Tender, Non Distended and Normal Bowel Sounds; No Organomegaly
Rectal: Deferred by Provider
Musculoskeletal: No Clubbing, No Cyanosis. 1+LLE pitting-significant improvement
Skin: No Rash
Neuro: Nonfocal/grossly intact
# Right flank pain secondary to urinary tract infection vs. severe constipation vs. MSK pain.
# History of Enterococcus faecium UTI/bacteremia
- UA shows greater than 100 WBC, negative nitrates, +3 leukocyte esterase
- CT abdomen pelvis shows no evidence of ureteral calculus, bilateral nephroliths, mild to moderate distention of the rectum with stool without evidence of stercoral colitis
- Prior urine culture shows vancomycin-resistant Enterococcus Faecium sensitive to linezolid
- Urine culture Enterococcus-resistance to ampicillin/vancomycin. Switch to po linezolid.
- Linezolid for now, can de-escalate as able
- Started aggressive bowel regimen senna/colace/miralax/dulcolax. Recs to increase fiber intake.
# Excoriating/folliculitis rash on chest
-Cont w/ OP derm f/u
# Fall with left knee injury
-Knee xray no acute fracture bilaterally
-venous doppler negative for DVT
-Continue with ice and Tylenol. improved. ambulating.
History of nephrolithiasis status post lithotripsy/stone extraction and stent placement
Chronic HFpEF
- on prn Lasix regimen
Paroxysmal atrial fibrillation
- Continue Eliquis
Asymptomatic sinus bradycardia
Essential hypertension
- Continue amlodipine, hydralazine, lisinopril
Essential tremor
- Continue primidone, propranolol, Topamax
Hyperlipidemia
- Continue statin
Chronic anemia
- Continue ferrous sulfate
Anxiety/depression
- Continue alprazolam, duloxetine
BPH
- Continue tamsulosin
Hypokalemia
-replete and monitor
Full code
DVT prophylaxis�Eliquis
PT recs home health.
More than 30 minutes spent in discharge including
Final examination of the patient
Summarizing hospital stay
Instructions for continuing care to all relevant caregivers
Preparation of discharge records, prescriptions, and referral forms
Total time spent (in minutes):52
Anticipated Discharge: Today
Subjective/Interval History
-
Date of Service: March 21, 2025
states of significant improvement in back pain
able to ambulate
having bowel movements
states passed alot of urine after lasix yesterday
Objective Data
-
Labs:
Laboratory Results
03/21/25
06:44
WBC 9.3
Hgb 12.0 L
Hct 40.1
Plt Count 237
Sodium 142
Potassium 3.5
Chloride 110 H
Carbon Dioxide 27
BUN 22 H
Creatinine 1.3
Glucose 107 H
Calcium 8.5
Vital Signs:
Vital Signs
Temp Pulse Resp BP Pulse Ox
98.1 F 53 16 133/71 92
03/21/25 08:21 03/21/25 08:21 03/21/25 08:21 03/21/25 08:21 03/21/25 08:40
I&O
03/20/25 03/21/25 03/22/25
06:59 06:59 06:59
Intake Total 1740 / 1740 1380 / 1380
Output Total 300 / 300 475 / 475
Balance 1440 / 1440 905 / 905
--- NOTE | 2025-03-21 11:33 | W.DCSUMMARY ---
Discharge Summary
Discharge Data
Date of Admission: 03/18/25
Date of Discharge: 03/21/25
-
Pending Results: No
Hospital Course
69-year-old male past medical history of chronic anemia, anxiety, depression, BPH, hyperlipidemia, essential tremors, hypertension, atrial fibrillation, chronic HFpEF, chronic bradycardia who is presenting from home with right flank pain. Patient
underwent CT abdomen pelvis on admission. CT abdomen pelvis shows no evidence of ureteral calculus, bilateral nephroliths, mild to moderate distention of the rectum with stool without evidence of stercoral colitis .Changes of degenerative disc
disease, greatest at L5-S1. At L5-S1, posterior disc calcification/spurring extending into the anterior spinal canal. Suggestion of previous right hemilaminectomy at L5-S1. Moderate to severe right and severe left foraminal narrowing at L5-S1.
Bilateral knee x-ray was negative for fracture. Left lower extremity ultrasound was negative for DVT. Patient UA was found to be abnormal. Patient was started on IV linezolid. Urine culture with Enterococcus with jose resistance. Sensitive to
linezolid. Duloxetine will need to be held while patient is on linezolid. Patient also with severe constipation. Patient with good result with aggressive bowel regiment. Patient was also recommended to increase fiber intake at home. Patient
with significant improvement in R sided flank pain. Patient was ambulating. Patient was eval by physical therapy and recommended home health.
Discharge Plan
-
Patient Disposition: Home with Home Care
Discharge Diagnosis/Procedures: Enterococcus UTI
Severe constipation
Hypokalemia
Left leg pain
Condition: Fair
Diet: Regular
Activity: As tolerated
Driving Restrictions: As prior to admission
Referrals:
Michael Pastor, [Family Provider, Family Practice] - in less than 1 week
Additional Discharge Medication Instructions: Hold Duloxetine while on Linezolid antibiotics.
Prescriptions:
New
polyethylene glycol 3350 17 gram Powder In Packet
17 g PO DAILY 14 Days Qty: 14 0RF
linezolid 600 mg tablet
600 mg PO Q12H 10 Days Qty: 20 0RF
Continued
tamsulosin 0.4 MG capsule
0.4 mg PO HS
cyanocobalamin (vitamin B-12) 1,000 MCG tablet
1,000 mcg PO DAILY@1500
primidone 250 MG tablet
250 mg PO BID
amlodipine 5 mg Tablet
5 mg PO DAILY
Eliquis 5 mg Tablet
5 mg PO BID Qty: 60 0RF
atorvastatin 80 mg Tablet
80 mg PO DAILY
topiramate 50 mg Tablet
50 mg PO BID
lisinopril 20 mg Tablet
20 mg PO DAILY 30 Days Qty: 30 0RF
propranolol 40 mg Tablet
60 mg PO BID 30 Days Qty: 90 0RF
ferrous sulfate 325 mg (65 mg iron) tablet,delayed release (DR/EC)
325 mg PO DAILY Qty: 30 0RF
furosemide 20 mg tablet
20 mg PO DAILYPRN PRN (Reason: FLUID)
hydralazine 50 MG tablet
50 mg PO TID Qty: 90 0RF
Held
duloxetine 60 MG capsule,delayed release(DR/EC)
60 mg PO BID
Hold Instructions: Resume on 04/01/25. restart after completion of linezolid antibiotics course.
Discharge Orders:
Discharge Patient (As Directed); Ordered 03/21/25
Ordered By: Kedar Quispe
Discharge Date and Time
Print Language: PASHTO
[2025-03-21 12:12] VITALS: BP 127/68
== END 2025-03-21 14:46 | disposition home health service (06) | DRG 690 ==
LOC: 4 WEST ACU 21:58
PROVIDERS: Emergency Medicine; ADMITTING PHYSICIAN Hospitalist; ATTENDING PHYSICIAN Hospitalist; EMERGENCY PHYSICIAN Emergency Medicine; FAMILY PHYSICIAN Family Medicine
DX: N39.0 Urinary tract infection, site not specified (principal); I50.32 Chronic diastolic (congestive) heart failure; Z16.21 Resistance to vancomycin; B95.2 Enterococcus as the cause of diseases classified elsewhere; K59.00 Constipation, unspecified; E87.6 Hypokalemia; D64.9 Anemia, unspecified; F32.A Depression, unspecified; F41.9 Anxiety disorder, unspecified; I11.0 Hypertensive heart disease with heart failure; N40.0 Benign prostatic hyperplasia without lower urinary tract symptoms; E78.5 Hyperlipidemia, unspecified; I48.0 Paroxysmal atrial fibrillation; G25.0 Essential tremor; M51.379 Other intervertebral disc degeneration, lumbosacral region without mention of lumbar back pain or lower extremity pain; M48.061 Spinal stenosis, lumbar region without neurogenic claudication; Z79.01 Long term (current) use of anticoagulants; Z79.899 Other long term (current) drug therapy; Z87.442 Personal history of urinary calculi; Z86.73 Personal history of transient ischemic attack (TIA), and cerebral infarction without residual deficits; E11.9 Type 2 diabetes mellitus without complications; W19.XXXA Unspecified fall, initial encounter; Z88.0 Allergy status to penicillin; L73.9 Follicular disorder, unspecified
CPT/HCPCS: 73560; 74177; 80048; 80053; 81003; 81015; 83690; 85025; 87077; 87086; 87186; 93005; 93970; 97163; 99285; J2020; Q9967

== ENCOUNTER 2025-04-04 22:53 | Inpatient (IN) | payer OTHER, SELFPAY ==
[2025-04-04] VITALS (7 sets, daily range): BP systolic 130–150; BP diastolic 70–83
[2025-04-04 17:21] LABS: Hematocrit 41.0 % (39.0-52.0); Hemoglobin 12.7 g/dL (13.0-18.0); Mean Corp Hgb Conc. 31.0 g/dL (33.0-37.0); Mean Corpuscular Volume 77.1 fL (80.0-94.0); Platelet Count 254 10^3/uL (130-400); Red Cell Dist. Width 23.9 % (11.5-14.5)
[2025-04-04 17:27] LABS: ALT (SGPT) 41 U/L (0-50); AST (SGOT) 27 U/L (17-59); Albumin 3.9 g/dl (3.5-5.0); Alkaline Phosphatase 104 U/L (38-126); Blood Urea Nitrogen 21 mg/dl (9-20); Calcium 8.2 mg/dl (8.4-10.2); Carbon Dioxide 24 mmol/L (22-30); Chloride 110 mmol/L (98-107); Glucose 133 mg/dl (70-99); Potassium 3.3 mmol/L (3.5-5.1); Sodium 142 mmol/L (135-145); Total Protein 6.7 g/dl (6.3-8.2); eGFR 49.77
[2025-04-04 19:29] LABS: Nucleated Red Blood Cells % 0 % (-)
--- NOTE | 2025-04-04 19:37 | ED.GENMED ---
History of Present Illness
<Monique Casey PA-C - Last Filed: 04/04/25 23:00>
General
Chief Complaint: Urinary Symptoms
Source: patient, records and family
Exam Limitations: none
Time Seen by Provider: 04/04/25 19:21
History of Present Illness
History of Present Illness:
69yoM with a history of prior CVA, hypertension, hyperlipidemia, and type 2 diabetes presenting with his and sister for evaluation of a fever. Patient was recently hospitalized from 03/18-03/21/25 for flank pain. He was treated with IV
linezolid for pyelonephritis and was discharged with a course of linezolid which he completed 2 days ago. Urine cultures grew out Enterococcus. He reports an abrupt onset of fevers and chills about 24 hours ago with a Tmax of 101.4. He states it
feels like 'I am in another world.' He is also experiencing cough, sore throat, and nausea. He was seen at urgent care prior to arrival and blood work showed a leukocytosis with a white count of 24 and he was sent to the ED for evaluation. Of
note, patient was seen by his touch up edger 2 days ago and was noted to be volume overloaded and Lasix was increased from 40 mg daily to 60 mg daily.
Past History
<Monique Casey PA-C - Last Filed: 04/04/25 23:00>
Past History
ED Past Medical History: CVA, HTN and NIDDM
ED Past Surgical History: None
Social History
Tobacco: Non-smoker
Alcohol: None
Drug: None
Personal:
Living: with family
Family History
Family History: Other
Phy Exam
<Monique Casey PA-C - Last Filed: 04/04/25 23:00>
General Physical Exam
General Presentation: no apparent distress
General Skin: warm and dry
General Habitus: normal
General Mental: alert
General Hydration: dry mucous membranes
ENT Exam
ENT Exam: normocephalic
Cardiovascular Exam
Cardiovascular Exam: regular rate/rhythm
Pulmonary Exam
Pulmonary Exam: lungs clear, no respiratory distress, no rales, no crackles, no rhonchi and no wheezing
Gastrointestinal Exam
Gastrointestinal Exam: soft, non distended and other (+Generalized abdominal tenderness. No guarding.)
Neurological Exam
Neurological Exam: alert
Jessica Coma Scale
Eye Opening: Spontaneous
Verbal Response: Oriented
Motor Response: Obeys Commands
GCS Total Score: 15
Skin Exam
Skin Exam: normal color and warm/dry
Course
<Monique Casey PA-C - Last Filed: 04/04/25 23:00>
Orders/Labs/Results
Orders:
Orders
04/04/25 17:05
CMP [Comprehensive Metabolic Panel] Urgent
Complete Blood Count/With Diff Urgent
Lactic Acid Urgent
04/04/25 19:36
CT Abd/pelvis W Iv Cont Urgent
Comment:
Reason For Exam: fever, abd pain
0.9% Sodium Chloride 1000 ml [Nss] 1,000 ml IV BOLUS
Potassium Chloride [KCl] 40 meq PO NOW STA
CR Chest - 2 Views Urgent
Comment:
Reason For Exam: fever
04/04/25 20:32
COVID-19 Antigen Urgent
Source: Nasal Swab
Urinalysis Reflex To Culture Urgent
Date Specimen was Collected: 04/04/25
Time Specimen was Collected: 16:41
Urine Microscopic Reflex Cult Urgent
Blood Culture Q30M
REVA Source: Blood/Venous
Specimen Description:
Blood Culture Q30M
REVA Source: Blood/Venous
Specimen Description:
Influenza A+B Rapid Molecular Urgent
REVA Source: Nasal Swab
Specimen Description:
Urine Culture Urgent
REVA Source: U
Specimen Description:
Date Specimen was Collected: 04/04/25
Time Specimen was Collected: 16:41
04/04/25 21:47
Vancomycin [Vancocin] 2,000 mg 0.9% Sodium Chloride 500 ml [Nss] 500 ml IV NOW
04/04/25 22:36
Admit/Transfer Patient As Directed
Co-Sign Provider:
Level of Care: Inpatient admission
Assign to:: Medical/Surgical
Physician / Group: Charles Cotto
Diagnosis: sepsis, UTI
Reason for Hospitalization: sepsis, UTI
Expected length of stay greater than two midnights?: Yes
ELOS- Estimated Length of Stay in days: 3
I certify the patient meets the requirements for IP care: Yes
PRN Pain Medication Management As Directed
May give lesser potent ordered pain med per pt: Yes
preference::
Protocol:: Medication orders for pain may be administered in a
manner that supports deferring to patient preference
when the pt is:
- Requesting an ordered lesser potent pain medication.
Least to most potent pain medications are defined
as: acetaminophen < NSAID < tramadol < opioids
(morphine, oxycodone, hydromorphone).
- Requesting a lesser dose of the same medication IF
ORDERED.
- Requesting a less intrusive route of administration
if both routes are prescribed by the provider (PO <
IV).
04/04/25 22:38
Code Status As Directed
Resuscitation Status: Full Code
Abnormal Lab Results
04/04/25 04/04/25
17:05 20:32
WBC 25.9 H 10^3/uL
(4.8-10.8)
Hgb 12.7 L g/dL
(13.0-18.0)
MCV 77.1 L fL
(80.0-94.0)
MCH 23.9 L pg
(27.0-31.0)
MCHC 31.0 L g/dL
(33.0-37.0)
RDW 23.9 H %
(11.5-14.5)
Abs Immat Gran (auto) 0.2 H 10^3/uL
(0-0.05)
Absolute Neuts (auto) 22.9 H 10^3/uL
(1.4-6.5)
Absolute Monos (auto) 1.4 H 10^3/uL
(0.1-0.6)
Immature Gran % 0.6 H %
(0-0.5)
Neutrophils % 88.4 H %
(42.2-75.2)
Lymphocytes % 5.3 L %
(20.5-51.1)
Potassium 3.3 L mmol/L
(3.5-5.1)
Chloride 110 H mmol/L
(98-107)
BUN 21 H mg/dl
(9-20)
Creatinine 1.5 H mg/dL
(0.7-1.3)
Glucose 133 H mg/dl
(70-99)
Calcium 8.2 L mg/dl
(8.4-10.2)
Ur Occult Blood Reflex 3+ A
(Negative)
Leukocyte Esterase Rfl 3+ A
(Negative)
Urine RBC 7-10 A /HPF
(0-2)
Urine WBC (Reflex) 60-70 A /HPF
(0-5)
Urine Bacteria (Reflex) Moderate A
(Negative)
Urine Albumin (Reflex) 3+ A
(Neg - Trace)
04/04/25 17:05
04/04/25 17:05
Vital Signs
Initial and Last Documented VS:
Initial Vital Signs
Temp Pulse Resp BP Pulse Ox
98.4 F 63 16 145/74 96
04/04/25 16:51 04/04/25 16:51 04/04/25 16:51 04/04/25 16:51 04/04/25 16:51
Last Documented Vital Signs
Temp Pulse Resp BP Pulse Ox
98.4 F 63 22 150/80 95
04/04/25 16:51 04/04/25 22:30 04/04/25 21:24 04/04/25 22:00 04/04/25 22:30
Yulialt;Ross LinLiban Briceno, DO - Last Filed: 04/04/25 21:54>
Orders/Labs/Results
Orders:
Orders
04/04/25 17:05
CMP [Comprehensive Metabolic Panel] Urgent
Complete Blood Count/With Diff Urgent
Lactic Acid Urgent
04/04/25 19:36
CT Abd/pelvis W Iv Cont Urgent
Comment:
Reason For Exam: fever, abd pain
0.9% Sodium Chloride 1000 ml [Nss] 1,000 ml IV BOLUS
Potassium Chloride [KCl] 40 meq PO NOW STA
CR Chest - 2 Views Urgent
Comment:
Reason For Exam: fever
04/04/25 20:32
COVID-19 Antigen Urgent
Source: Nasal Swab
Urinalysis Reflex To Culture Urgent
Date Specimen was Collected: 04/04/25
Time Specimen was Collected: 16:41
Urine Microscopic Reflex Cult Urgent
Blood Culture Q30M
REVA Source: Blood/Venous
Specimen Description:
Blood Culture Q30M
REVA Source: Blood/Venous
Specimen Description:
Influenza A+B Rapid Molecular Urgent
REVA Source: Nasal Swab
Specimen Description:
Urine Culture Urgent
REVA Source: U
Specimen Description:
Date Specimen was Collected: 04/04/25
Time Specimen was Collected: 16:41
04/04/25 21:47
Vancomycin [Vancocin] 2,000 mg 0.9% Sodium Chloride 500 ml [Nss] 500 ml IV NOW
04/04/25 22:36
Admit/Transfer Patient As Directed
Co-Sign Provider:
Level of Care: Inpatient admission
Assign to:: Medical/Surgical
Physician / Group: Charles Cotto
Diagnosis: sepsis, UTI
Reason for Hospitalization: sepsis, UTI
Expected length of stay greater than two midnights?: Yes
ELOS- Estimated Length of Stay in days: 3
I certify the patient meets the requirements for IP care: Yes
PRN Pain Medication Management As Directed
May give lesser potent ordered pain med per pt: Yes
preference::
Protocol:: Medication orders for pain may be administered in a
manner that supports deferring to patient preference
when the pt is:
- Requesting an ordered lesser potent pain medication.
Least to most potent pain medications are defined
as: acetaminophen < NSAID < tramadol < opioids
(morphine, oxycodone, hydromorphone).
- Requesting a lesser dose of the same medication IF
ORDERED.
- Requesting a less intrusive route of administration
if both routes are prescribed by the provider (PO <
IV).
04/04/25 22:38
Code Status As Directed
Resuscitation Status: Full Code
Abnormal Lab Results
04/04/25 04/04/25
17:05 20:32
WBC 25.9 H 10^3/uL
(4.8-10.8)
Hgb 12.7 L g/dL
(13.0-18.0)
MCV 77.1 L fL
(80.0-94.0)
MCH 23.9 L pg
(27.0-31.0)
MCHC 31.0 L g/dL
(33.0-37.0)
RDW 23.9 H %
(11.5-14.5)
Abs Immat Gran (auto) 0.2 H 10^3/uL
(0-0.05)
Absolute Neuts (auto) 22.9 H 10^3/uL
(1.4-6.5)
Absolute Monos (auto) 1.4 H 10^3/uL
(0.1-0.6)
Immature Gran % 0.6 H %
(0-0.5)
Neutrophils % 88.4 H %
(42.2-75.2)
Lymphocytes % 5.3 L %
(20.5-51.1)
Potassium 3.3 L mmol/L
(3.5-5.1)
Chloride 110 H mmol/L
(98-107)
BUN 21 H mg/dl
(9-20)
Creatinine 1.5 H mg/dL
(0.7-1.3)
Glucose 133 H mg/dl
(70-99)
Calcium 8.2 L mg/dl
(8.4-10.2)
Ur Occult Blood Reflex 3+ A
(Negative)
Leukocyte Esterase Rfl 3+ A
(Negative)
Urine RBC 7-10 A /HPF
(0-2)
Urine WBC (Reflex) 60-70 A /HPF
(0-5)
Urine Bacteria (Reflex) Moderate A
(Negative)
Urine Albumin (Reflex) 3+ A
(Neg - Trace)
04/04/25 17:05
04/04/25 17:05
Vital Signs
Initial and Last Documented VS:
Initial Vital Signs
Temp Pulse Resp BP Pulse Ox
98.4 F 63 16 145/74 96
04/04/25 16:51 04/04/25 16:51 04/04/25 16:51 04/04/25 16:51 04/04/25 16:51
Last Documented Vital Signs
Temp Pulse Resp BP Pulse Ox
98.4 F 63 22 150/80 95
04/04/25 16:51 04/04/25 22:30 04/04/25 21:24 04/04/25 22:00 04/04/25 22:30
<Monique Casey PA-C - Last Filed: 04/04/25 23:00>
MDM/Problems Addressed
Differential Diagnosis Includes:
69yoM here with fevers/rigors that began yesterday. Recent hospitalization for pyelo and finished course of linezolid 2 days ago. VSS and he is afebrile on arrival. Patient is nontoxic-appearing. There is generalized abdominal tenderness on exam
without peritonitis. Differential diagnosis includes but is not limited to: UTI, pyelonephritis, diverticulitis, pneumonia, viral illness, bacteremia
Initial ED plan: Workup initiated in triage. Significant leukocytosis noted with a white count of 25.9 with a left shift. Lactate normal. Creatinine 1.5, mildly up from 1.3 two weeks ago. Potassium 3.3 which was replaced. Will check UA,
COVID/flu swab, blood cultures, chest x-ray, and CT abdomen. IV fluid bolus
<Monique Casey PA-C - Last Filed: 04/04/25 23:00>
*Pulse Oximetry
SaO2: 95
Oxygen Mode of Delivery: Room air
Patient hypoxic: no (96%)
*Critical Care Note
Total Time (30-74mins, 75-104mins- exclusive of procedures): Not Applicable
<Monique Casey PA-C - Last Filed: 04/04/25 23:00>
Update Note
Update Note:
UA with 60-70 WBCs and moderate bacteria. Chest x-ray clear. No signs of infection on CT scan. Only obvious source at this point is a urinary tract infection. IV vancomycin ordered based on prior culture data. Patient admitted for further
evaluation management.
ED Attending Note
<Monique Casey PA-C - Last Filed: 04/04/25 23:00>
-
Portions of this chart may have been created with voice recognition software.� Occasional wrong word or��sound alike� substitutions may have occurred due to the inherent limitations of voice recognition software.
<Ross Briceno DO - Last Filed: 04/04/25 21:54>
ED Attending Note
Patient seen and examined by attending physician: Yes
I performed the substantive portion of visit, reviewed & personally made and approve the management plan that is documented in note by myself or MATTHEW.: Yes
ED Attending Note:
I agree with Savita's note.
Pt with recent hospitalization for uti/pyelo and grew resistent Eneterococcus. Pt was feeling better during hospitalization and d/c on oral linazolid. Symptoms returned over the past 24 hours
Also with cough. Patient states she has had rigors, fever over 101 at home
General: Awake, Alert, Oriented X3. Appears somewhat ill
Vitals: unremarkable
Head: Atraumatic
Eyes: Pupils equal, EOMI
Throat: Airway intact, no exudates
Neck: Trachea midline
Lungs: Clear and equal b/l
Heart: Regular rate, no murmurs
Abd: Soft, mildly tender diffusely, No pulsatile mass
Neuro: Nonfocal
Skin: Warm, dry, no rash
Extremities: pulses equal b/l, no edema
Patient presents with recurrence of infection symptoms. Workup here shows the urine to be the only likely cause. Savita ordered IV antibiotics geared towards the Enterococcus that he grew most recently. Chest x-ray is negative. Abdominal CT does
not suggest any other acute inflammatory process. Will require hospitalization for IV antibiotics, close monitoring. Noted to be mildly hypokalemic which was repleted.
Discharge Plan
Departure
Patient Disposition: Admit
Date of Disposition: 04/04/25
Time of Disposition: 21:44
Presentation/result/management discussed w/ accepting MD/DO: Hospitalist
Discharge Problem:
Urinary tract infection, Sepsis
Interventions
Interventions:
*Risk Screen - Suicide Last Done: 04/04/25 16:51
*Neglect/Abuse Screening Last Done: 04/04/25 16:51
ED-Male Genitourinary Assessment Last Done: 04/04/25 18:36
[2025-04-04] MEDS: NSS 1000 IV (20:11)
[2025-04-04] MEDS: KCL 40 MEQ PO (20:11)
[2025-04-04 20:47] LABS: Urine Character Clear (Clear)
[2025-04-04 20:56] LABS: Urine White Cell 60-70 /HPF (0-5)
[2025-04-04 21:01] LABS: COVID-19 Antigen Negative (Negative)
--- NOTE | 2025-04-04 21:57 | HPS.HSE ---
Family Physician
-
Family Physician: Michael Pastor
Chief Complaint
-
fevers and body aches
History of Present Illness
Patient is a 69-year-old male with past medical history significant for hypertension, hyperlipidemia, type 2 diabetes, chronic HFpEF, paroxysmal atrial fibrillation, anemia and anxiety/depression who presented to [facility] ED for evaluation of fevers and
body aches. Patient with recent admission 03/18/2025 - 03/21/2025 for acute pyelonephritis, discharged with Linezolid and was completed a few days ago. Patient reports feeling better until 2 days ago when he started with fevers and body aches, it
has not improved so he returned to ED for evaluation. Patient denies any cough, shortness of breath, chest pain, nausea, vomiting, constipation, diarrhea or urinary symptoms.
Medical History
Past Medical History
Past Medical History: Reports Other
Additional Past Medical History:
hypertension
hyperlipidemia
type 2 diabetes
chronic HFpEF
paroxysmal atrial fibrillation on Xarelto
CVA
anemia
anxiety/depression
nephrolithiasis
asymptomatic sinus bradycardia
essential tremor
Past Surgical History: Reports None
Social History
Tobacco: Non-smoker
Alcohol: None
Drug: None
Family History
Family History: Not pertinent
Allergies / Home Medications
Allergies reflects when Allergies were last updated in [facility].
Home Medications with original date entered in [facility]
Allergy/Medication List:
Allergies
Allergy/AdvReac Type Severity Reaction Status Date / Time
Penicillins Allergy Hives, rash Verified 04/04/25 21:47
Home Medications
hydralazine 50 mg tablet 50 mg PO TID #90 tabs 05/18/18
tamsulosin 0.4 mg capsule 0.4 mg PO HS Urinary Issue 08/24/19
cyanocobalamin (vitamin B-12) 1,000 mcg tablet 1,000 mcg PO DAILY@1500 Supplement 01/19/21
duloxetine 60 mg capsule,delayed release 60 mg PO BID Mental Health/Anxiety 01/19/21
Held on 03/21/25. Instructions: Resume on 04/01/25. restart after completion of linezolid antibiotics course.
primidone 250 mg tablet 250 mg PO BID Seizures 01/19/21
amlodipine 5 mg tablet 5 mg PO DAILY Blood Pressure 06/03/22
apixaban 5 mg tablet (Eliquis) 5 mg PO BID #60 tabs 05/19/23
atorvastatin 80 mg tablet 80 mg PO DAILY High Cholesterol 02/04/25
topiramate 50 mg tablet 50 mg PO BID Seizures 02/04/25
ferrous sulfate 325 mg (65 mg iron) tablet,delayed release 325 mg PO DAILY #30 tabs 02/06/25
lisinopril 20 mg tablet 20 mg PO DAILY 30 days #30 tabs 02/06/25
propranolol 40 mg tablet 60 mg (1.5 x 40 mg) PO BID 30 days #90 tabs 02/06/25
furosemide 20 mg tablet 20 mg PO DAILYPRN PRN FLUID 03/18/25
polyethylene glycol 3350 17 gram oral powder packet 17 g PO DAILY 14 days #14 ea 03/21/25
Review of Systems
-
History Source: Patient
Constitutional: Reports Fever and Fatigue; Denies Chills
EENT: Denies Sore Throat
Respiratory: Denies Cough or Trouble Breathing
Cardiac: Denies Chest Pain, Diaphoresis, Palpitations or Syncope
Abdomen/GI: Reports Abdominal Pain; Denies Nausea, Vomiting, Diarrhea or Constipated
: Denies Dysuria, Frequency, Flank Pain, Difficulty Voiding or Urgency
Musculoskeletal: Reports Muscle Pain ('body aches')
Neurological: Reports Weakness; Denies Dizzy, Headache or Numbness
Endocrine: Denies Polyuria or Polydipsia
Psych: Reports No Symptoms
Physical Exam
Vital Signs
Vital Signs
Temp Pulse Resp BP Pulse Ox
98.4 F 65 22 134/78 95
04/04/25 16:51 04/04/25 21:24 04/04/25 21:24 04/04/25 21:18 04/04/25 21:24
Physical Exam
General: Well Nourished, No Apparent Distress, Conversant and Obese
HEENT: NormoCephalic, Moist mucous membranes and Atraumatic
Respiratory: Clear and Non Labored Respirations
Cardiac: S1/S2, Regular Rhythm and Peripheral Edema (BLLE +1-2 pitting edema ); No Murmur, Rub or Gallop
Breast: Deferred by me
GI: Normal Bowel Sounds and Tender; No Organomegaly
Rectal: Deferred by Provider
Genito-urinary: Deferred by me
Musculoskeletal: No Clubbing and No Cyanosis
Skin: Warm and IV/Catheter Site; No Rash
Neuro: Awake, AO x 3 and Nonfocal/grossly intact
Hematologic/Lymphatic: No Lymphadenopathy
Psych: Calm
Laboratory Results
-
04/04/25 17:05
04/04/25 17:05
Laboratory Results
Lactic Acid 1.6 mmol/L (0.7-2.0) 04/04/25 17:05
Total Bilirubin 1.0 mg/dl (0.2-1.3) 04/04/25 17:05
AST 27 U/L (17-59) 04/04/25 17:05
ALT 41 U/L (0-50) 04/04/25 17:05
Alkaline Phosphatase 104 U/L (38-126) 04/04/25 17:05
Data Reviewed
-
Diagnostic Radiology: Report Reviewed by me (CXR: No findings to suggest pneumonia. No interval change.)
CT Scan: Report Reviewed by me (Abd/Pel: Distal colonic diverticulosis without convincing findings to suggest diverticulitis. Small bilateral nonobstructing renal calculi. Symmetric renal excretion. Bilateral symmetric perinephric stranding,
nonspecific. Virtually completely empty urinary bladder, markedly limited in evaluation.)
Lab Data: Labs Reviewed by me (WBC 25.9, Neut 88.4, BUN 21, Creat 1.5, )
Impression/Plan
-
IMPRESSION/PLAN:
#sepsis 2/2 UTI vs. diverticulitis
WBC 25.9, Neut 88.4, BUN 21, Creat 1.5
CXR: No findings to suggest pneumonia.
No interval change.
Abd/Pel CT: Distal colonic diverticulosis without convincing findings to suggest diverticulitis.
Small bilateral nonobstructing renal calculi. Symmetric renal excretion. Bilateral symmetric perinephric stranding, nonspecific.
Virtually completely empty urinary bladder, markedly limited in evaluation.
- Admit to med/surg
- IV Vanco and Cefepime
- Consider ID consult after cultures result
- Blood Cx if patient spikes temp
- supportive care
#hypertension
- continue amlodipine, lisinopril and hydralazine
#hyperlipidemia
- continue atorvastatin
#chronic HFpEF
- daily weights
- I & Os
- continue PRN furosemide
#paroxysmal atrial fibrillation
- continue Eliquis
#anemia
- continue ferrous sulfate
#anxiety/depression
- continue duloxetine
#essential tremor
- continue primidone, propranolol and topiramate
#type 2 diabetes
not on medications
#CVA
Code status: full code
DVT Prophylaxis: heparin sq
[2025-04-04] MEDS: VANCOCIN 540 MG IV (22:01)
--- NOTE | 2025-04-04 22:34 | W.PN.UPDATE ---
Update Note
Progress Note Update
Patient seen in conjunction with [employer]. I agree with the findings and physical. I concur with assessment and plan unless stated otherwise.
Briefly, this is a 69-year-old with past medical history of atrial fibrillation on anticoagulation, hypertension, BPH, history of seizures, heart failure with preserved EF, chronic bradycardia and hyperlipidemia who presents to the emergency
department with complaints of fevers for the last 2 days.
Patient was recently admitted to the hospital for pyelonephritis. Was found to have vancomycin sensitive Enterococcus. He was treated with IV linezolid and discharged home on oral linezolid. Patient completed the course of linezolid 2 days ago.
He said the following day he started having fevers and breaking into sweats. He reported having a fever of 100.3 at home today. He denied flank pain. He reports abdominal discomfort. He denies any urinary symptoms including dysuria, frequency
urgency. He denies constipation. He denies diarrhea. He reports generalized aches. He denies any shortness of breath. He denies any cough. No sick contacts.
In the emergency department he was afebrile with a temp of 98.8. Blood pressure was 134/78 with a pulse rate of 65 and was satting 99% on room air. His UA was markedly positive. He has leukocytosis to 26, hemoglobin and platelets were normal.
Electrolytes BUN and creatinine were unchanged. CT of the abdomen pelvis showing distal diverticulosis without convincing findings to suggest diverticulitis. He has small bilateral nonobstructing renal calculi. Bilateral symmetric perinephric
stranding noted which were nonspecific. No blood obstruction.
Assessment and plan
69-year-old with recent pyelonephritis with vancomycin sensitive enterococci status post linezolid treatment who comes into the emergency department with fevers generalized aches and pains and positive UA. Was found to have markedly elevated WBCs
and abdominal discomfort. CT scan consistent with pyelo-. No evidence of an acute intra-abdominal process despite tender abdominal examination.
- Admit to [facility]
- Urine culture sent
- Blood cultures afebrile
- Given recent admissions and last urine cx, vanc sens E feacalis + gram-negative coverage with IV vancomycin and cefepime for now
- Pain control and laxatives
Mild renal dysfunction, creatinine rising from 1-1.5
- Status post IV fluids in ED, monitor for now
- Continue tamsulosin
CHF with preserved EF
- Continue medical management with BP control, propranolol, lisinopril hydralazine
- monitor volume status
Atrial fibrillation
- Continue anticoagulation with Eliquis
- Continue his propranolol
- Keep K and mag greater than 4, 2
DVT PPX - on eliquis
Code status - full code
[2025-04-05 00:05] VITALS: BMI 35.6
[2025-04-05 00:23] VITALS: BP 144/79
[2025-04-05] MEDS: MAXIPIME 1000 MG IV ×5 (00:40→23:39)
[2025-04-05] MEDS: ELIQUIS 5 MG PO ×3 (00:40→19:35)
[2025-04-05] MEDS: STERILE WATER FOR INJECTION 10 ML IV ×5 (00:44→23:38)
[2025-04-05 07:34] VITALS: BP 132/80
[2025-04-05 07:38] LABS: Blood Urea Nitrogen 18 mg/dl (9-20); Calcium 7.3 mg/dl (8.4-10.2); Carbon Dioxide 22 mmol/L (22-30); Chloride 115 mmol/L (98-107); Estimated Creatinine Clearance 76 ml/min; Glucose 122 mg/dl (70-99); Potassium 3.5 mmol/L (3.5-5.1); Sodium 143 mmol/L (135-145); eGFR > 60.00
[2025-04-05 07:43] LABS: Hematocrit 36.3 % (39.0-52.0); Hemoglobin 11.2 g/dL (13.0-18.0); Mean Corp Hgb Conc. 30.9 g/dL (33.0-37.0); Mean Corpuscular Volume 77.7 fL (80.0-94.0); Platelet Count 204 10^3/uL (130-400); Red Cell Dist. Width 23.9 % (11.5-14.5)
--- NOTE | 2025-04-05 07:50 | PHA.VAN.IN ---
Assessment
- Assessment
Renal Function: Appears similar to baseline
Concomitant Antimicrobials: cefepime
Plan
- Plan
Initial / Loading Dose: 2000mg - 04/04 22:01
Maintenance Regimen: dosing by level - re-dose with 1250mg x1 today
Monitoring: random 04/06 0600
Pharmacokinetics Vancomycin I
- -
Patient Age: 69
Patient Sex: Male
Vancomycin Day #: 1
Indication: Genito-Urinary Tract
Requesting Provider: Aixa Lord
Pertinent Antimicrobial Allergies:
penicillins - hives, rash; tolerated amoxicillin
Height / Weight:
Height 6 ft
Actual Weight 118.841 kg
Pertinent Past Medical History: BMI ~36, DM 2
- Vital Signs / Lab Results
Temp Pulse Resp BP Pulse Ox
98.3 F 60 16 132/80 96
04/05/25 07:34 04/05/25 07:34 04/05/25 07:34 04/05/25 07:34 04/05/25 07:34
Lab Results - Hematology
04/04/25 04/05/25
17:05 06:42
WBC 25.9 H 16.2 H
Lab Results - Chemistry
04/04/25 04/05/25
17:05 06:42
BUN 21 H 18
Creatinine 1.5 H 1.2
Estimated Creat Clear 76
Albumin 3.9
04/04/25
17:05
Lactic Acid 1.6
Lab Results - Urine
04/04/25
20:32
Urine Nitrite (Reflex) Negative
Leukocyte Esterase Rfl 3+ A
Urine WBC (Reflex) 60-70 A
Ur Squamous Epith Cells 11-15
Urine Bacteria (Reflex) Moderate A
Microbiology Results
04/04/25 20:32 Influenza Types A & B (FELIX) - Final
Nasal Swab Negative for Influenza A & B, NAAT
Negative results must be combined with clinical observations
and patient history.
Nucleic Acid Amplification test (NAAT)performed on the
[employer] platform.
--- NOTE | 2025-04-05 08:11 | VNURNOTE ---
Chart reviewed. Patient is current with [facility]. Will continue to follow hospital course and DC plans.
[2025-04-05] MEDS: NORVASC 5 MG PO (08:52)
[2025-04-05] MEDS: CYMBALTA DELAYED RELEASE 60 MG PO ×2 (08:52→19:35)
[2025-04-05] MEDS: FEOSOL 325 MG PO (08:52)
[2025-04-05] MEDS: MIRALAX 17 GRAMS PO (08:52)
[2025-04-05] MEDS: LIPITOR 80 MG PO (08:53)
[2025-04-05] MEDS: APRESOLINE 50 MG PO ×3 (08:53→22:04)
[2025-04-05] MEDS: TOPAMAX 50 MG PO ×2 (08:53→19:35)
[2025-04-05] MEDS: INDERAL 60 MG PO ×2 (08:57→19:36)
[2025-04-05] MEDS: MYSOLINE 250 MG PO ×2 (08:58→19:35)
[2025-04-05 09:00] VITALS: BMI 35.6
[2025-04-05] MEDS: ZESTRIL 20 MG PO (09:01)
--- NOTE | 2025-04-05 10:14 | CON.MD ---
Consultation - Medical
-
see dictated note
pt with long hx of recurrent enterococcal UTI
he underwent bladder stone removal in 2017/ TURP in 2019 and then multi-stage ureteroscopy for large stone in 2022
admitted with enterococcal UTI/pyelo- discharged with vanc- returned after completing this course saying he wasnt feeling well
AF, elevated wbc, + UA- cx's pending
ct shows minimal stone burden
plan
reviewed all notes
urologically- all infectious reservoirs have been addressed and stone burden is minimal
ID consult pending
would treat medically- then would rec maintenance methenamine bid and outpt f/u with dr mccoy
discussed with med team
Consultation
-
Date/Time Consultation Requested: 04/05/25 at 9:30am
Date/Time Consultation Performed: 04/05/25 at 10:15 am
Requesting Provider: Dr Abraham
Performing Provider: Dr Tarango
Reason for Consultation: UTI and stone
[2025-04-05 10:49] LABS: Hematocrit 38.2 % (39.0-52.0); Hemoglobin 11.4 g/dL (13.0-18.0); Mean Corp Hgb Conc. 29.8 g/dL (33.0-37.0); Mean Corpuscular Volume 77.0 fL (80.0-94.0); Nucleated Red Blood Cells % 0 % (-); Platelet Count 217 10^3/uL (130-400); Red Cell Dist. Width 24.1 % (11.5-14.5)
[2025-04-05] MEDS: VANCOCIN 275 MG IV (12:16)
--- NOTE | 2025-04-05 13:05 | CON.ID ---
Consultation
-
Date/Time Consultation Requested: 04/05/2025 0946
Date/Time Consultation Performed: 04/05/2025 1250
Requesting Provider: Dr. Abraham
Performing Provider: Dr. Can
Reason for Consultation: Leukocytosis; complicated urinary tract infection
Chief Complaint / Past History
History of Present Illness
Ashok Sanford is a 69-year-old man with a significant past medical history of BPH and DM being evaluated at the request of Dr. Abraham regarding a complicated urinary tract infection. History is obtained from chart review, along with patient
interview. Additional history was obtained from old records contained in the hospital EMR system.
The patient had a recent admission to [facility] from 03/18 through 03/21 for evaluation of right flank pain. During hospitalization found to have enterociccus in the urine, and presumed pyelonephritis. The patient was discharged on a 10-day
course of linezolid (to continue through 03/30/2025) given that the isolate was resistant to ampicillin.
The patient presents back to the ER at [facility] on 04/04/25 secondary to the abrupt onset of fevers and chills over the prior 24 hours. Reported Tmax was 101.4. He also complained of cough, sore throat and nausea. He initially went to an
urgent care, where CBC revealed a white count of 24. He was then sent on to the ER for further evaluation. Here he was not found to be febrile, but his white count was noted to be 25. Given the prior significant enterococcal resistance,
Infectious Diseases is asked to comment upon further antimicrobial management.
At the present time, the patient continues to feel generally weak although somewhat improved. Over the past 24 hours he has noted ongoing feverishness and chills. He denies any headache. Denies any chest pain or shortness of breath. He denies
any abdominal pain or flank pain. He denies any dysuria.
Past History
Additional Past Medical History:
Chronic anemia
Anxiety/depression
BPH
HLD
Essential tremor
HTN
A-fib (on Xarelto)
Chronic CHF
Chronic bradycardia
Hx CVA
DM
Past Surgical History: None
Additional Past Surgical History:
Esophageal surgery as a child
Allergy History:
Penicillins Allergy (Verified 04/05/25 07:52)
Hives, rash at 11y/o; tolerated amoxicillin
Medications Reviewed: Yes
Current Antibiotics:
Cefepime 1 gm IV q.6 hours
Vancomycin (dosing per pharmacy)
Social History
Tobacco: Non-Smoker
Alcohol: None
Drug: None
Personal:
Living: With Family
Employment: Retired
Family History
Family History: Not Pertinent
Review of Systems
Vital Signs
Temp Pulse Resp BP Pulse Ox
98.3 F 68 16 132/80 96
04/05/25 07:34 04/05/25 08:57 04/05/25 07:34 04/05/25 08:57 04/05/25 08:00
Physical Exam
Physical Exam
Constitutional: No Acute Distress, Comfortable, Non-toxic and Obese
Eyes: No Conjunctival Hemorrhage and Sclera Anicteric
Oral: No Thrush and No Ulcers
Lymph Nodes: Negative Lymphadenopathy
Cardiovascular: Regular Rate and S1/S2; Negative S3/S4 or Murmur
Pulmonary: Clear; Negative Wheezes, Rales or Rhonchi
Gastrointestinal: Soft, Non Tender, Non Distended, Normal Bowel Sounds, No Rebound and No Guarding
Genito-Urinary: Negative Petersen, Suprapubic Tenderness or CVA Tenderness
Extremities: Negative Edema, Cyanosis or Erythema
Neurological: Awake and Alert
Psychological: Calm
Lab / Diagnostic Study Results
04/05/25 10:24
04/05/25 06:42
Abs Immat Gran (auto) 0.1 10^3/uL (0-0.05) H 04/05/25 10:24
Absolute Neuts (auto) 14.7 10^3/uL (1.4-6.5) H 04/05/25 10:24
Absolute Lymphs (auto) 1.6 10^3/uL (1.2-3.4) 04/05/25 10:24
Absolute Monos (auto) 0.8 10^3/uL (0.1-0.6) H 04/05/25 10:24
Absolute Basos (auto) 0.1 10^3/uL (0-0.2) 04/05/25 10:24
Immature Gran % 0.3 % (0-0.5) 04/05/25 10:24
Neutrophils % 84.8 % (42.2-75.2) H 04/05/25 10:24
Lymphocytes % 9.0 % (20.5-51.1) L 04/05/25 10:24
Monocytes % 4.7 % (1.7-9.3) 04/05/25 10:24
Eosinophils % 0.9 % (0-6) 04/05/25 10:24
Basophils % 0.3 % (0-2) 04/05/25 10:24
Lactic Acid 1.6 mmol/L (0.7-2.0) 04/04/25 17:05
Ur Squamous Epith Cells 11-15 /LPF (Few) 04/04/25 20:32
Microbiology Results
Micro:
04/04/25 20:32 Influenza Types A & B (FELIX) - Final
Nasal Swab Negative for Influenza A & B, NAAT
Negative results must be combined with clinical observations
and patient history.
Nucleic Acid Amplification test (NAAT)performed on the
[employer] platform.
04/04/25 20:32 Urine Culture - Pending
Urine
04/04/25 20:32 Blood Culture - Pending
Blood/Venous
04/04/25 20:32 Blood Culture - Pending
Blood/Venous
Imaging:
04/04/2025 CXR (2 view): no significant focal parenchymal opacification or vascular congestion. Cardiomediastinal silhouettes are within the limits of normal. No findings suggest pneumonia. Please see full dictation for additional detail.
04/04/2025 CT abdomen/pelvis with contrast: diverticulosis without findings to suggest diverticulitis. Small bilateral nonobstructing renal calculi. Symmetric renal excretion. Bilateral symmetric perinephric stranding, nonspecific. Please see
full dictation for additional detail.
Assessment / Plan
Leukocytosis
Suspected complicated urinary tract infection
Recent history of enterococcal pyelonephritis (s/p 14-day course antibiotics)
Malaise
Chronic anemia
Anxiety/depression
BPH
HLD
Essential tremor
HTN
A-fib (on Xarelto)
Chronic CHF
Chronic bradycardia
Hx CVA
DM
Recommendations:
Continue with empiric vancomycin and cefepime. Follow vancomycin levels closely to prevent nephrotoxicity
Blood cultures and urine culture pending. Await results.
Follow white count and temperature curve.
Further recommendations as additional data is returned.
--- NOTE | 2025-04-05 14:32 | CM ---
Chart reviewed, recent discharge , patient lives with spouse in a 2 story home, 3 steps to enter, patient is independent with adl's and uses a cane with ambulation. Patient is current with [facility].
PCP: Michael Pastor
Pharmacy: [facility] in [place]
Plan; Home with [facility].
[2025-04-05 15:39] VITALS: BP 150/84
--- NOTE | 2025-04-05 15:56 | W.PN.HOSP.TC ---
Today's Communication/Plan
-
IV antibiotics pending cultures
Assessment / Plan
Assessment / Plan
Impression
Complicated UTI pyelonephritis
Nonobstructive nephrolithiasis.
Recent hospitalization with complicated UTI and urine culture with Enterococcus complete course of linezolid as outpatient
Acute kidney injury
Other conditions
History of complicated UTI with VRE bacteremia
Bilateral nephrolithiasis requiring urologic intervention in the settings of complicated UTI.
CHF with preserved EF
Paroxysmal atrial fibrillation
Anticoagulation with Eliquis
Plan:
Recurrent complicated UTI/pyelonephritis
Sepsis ruled out
Recent episode of cystitis with Enterococcus completed course of linezolid.
Prior history of infected obstructive stones with UTI and VRE bacteremia status post lithotripsy.
CT scan on admission with small bilateral nonobstructive renal colliculi. Diverticulosis without diverticulitis
Urine culture/blood cultures pending.
Discussed with urology with no indication for urologic intervention at this time.
ID consulted.
Continue empiric antibiotics, currently on vancomycin and cefepime pending final cultures
Continue formal
ANN
Mild hypokalemia
Improved with hydration.
Hold the lisinopril for another 24 to 48 hours
Follow BMP
On Lasix as needed [employer]
CHF, preserved EF
Volume status compensated.
Essential hypertension.
Continue propranolol, Norvasc, hydralazine. Hold lisinopril given ANN.
Anticipated Discharge: 24 - 48 hours
Subjective/Interval History
-
Date of Service: April 05, 2025
Objective Data
-
Labs:
Laboratory Results
04/05/25 04/05/25
06:42 10:24
WBC 16.2 H 17.3 H
Hgb 11.2 L 11.4 L
Hct 36.3 L 38.2 L
Plt Count 204 217
Sodium 143
Potassium 3.5
Chloride 115 H
Carbon Dioxide 22
BUN 18
Creatinine 1.2
Glucose 122 H
Calcium 7.3 L
Vital Signs:
Vital Signs
Temp Pulse Resp BP Pulse Ox
98.5 F 59 18 150/84 96
04/05/25 15:39 04/05/25 15:39 04/05/25 15:39 04/05/25 15:39 04/05/25 15:39
I&O
04/04/25 04/05/25 04/06/25
06:59 06:59 06:59
Intake Total 275 / 275
Balance 275 / 275
Physical Exam
-
General: Well Developed and No Apparent Distress
HEENT: Normocephalic, Atraumatic and Moist Mucous Membranes
Respiratory: Clear to Auscultation
Cardiac: Regular Rhythm and S1/S2; Negative Murmur, Rub or Gallop
GI: Soft, Nontender, Nondistended and Normal Bowel Sounds; Negative Organomegaly
Rectal: Deferred by Provider
Musculoskeletal: No Clubbing, No Cyanosis and No Edema
Skin: Negative Rash
Neuro: Nonfocal/Grossly Intact
[2025-04-05] MEDS: FLOMAX 0.4 MG PO (22:04)
[2025-04-05 23:12] VITALS: BP 145/83
--- NOTE | 2025-04-05 23:30 | PTCARENOTE ---
Patient started with a deep cough, expiratory wheeze, and some shortness of breath. Advised covering FARHAT Watt. Orders received. Also boosted patient higher in bed and provided hot tea per request.
[2025-04-05] MEDS: ROBITUSSIN 200 MG PO (23:37)
[2025-04-05] MEDS: FLUSH (NSS) 2 FLUSH IV (23:46)
[2025-04-06] MEDS: ROBITUSSIN 200 MG PO ×2 (03:54→19:54)
[2025-04-06] MEDS: TYLENOL 650 MG PO ×2 (03:57→22:19)
[2025-04-06] MEDS: STERILE WATER FOR INJECTION 10 ML IV ×3 (05:13→17:27)
[2025-04-06] MEDS: MAXIPIME 1000 MG IV ×3 (05:13→17:27)
[2025-04-06] MEDS: FLUSH (NSS) 2 FLUSH IV (05:16)
[2025-04-06 07:01] VITALS: BP 146/79
--- NOTE | 2025-04-06 07:11 | W.PN.URO.CBU ---
Today's Communication / Plan
-
continue iv antibx
Assessment / Plan
-
recurrent enterococcal UTI
pt with no evid of anatomic abnl and has already undergone previous TURP
continue with antibx per IF
await cx's
will follow
Diagnosis
-
Date of Service: April 06, 2025
-
Patient Diagnosis:
UTI
Post Op Day:
Subjective
-
pt says he had a bad night- right sided back pain and chills
no documented fevers
wbc pending
blood cx's negative to date
ucx pending
Objective
-
Vital Signs
Temp Pulse Resp BP Pulse Ox
98.6 F 64 18 146/79 95
04/06/25 07:01 04/06/25 07:01 04/06/25 07:01 04/06/25 07:01 04/06/25 07:01
Intake and Output
04/05/25 04/06/25 04/07/25
06:59 06:59 06:59
Intake Total 1115 / 1115
Balance 1115 / 1115
Intake:
Oral fluids 840 / 840
IV piggybacks 275 / 275
Other:
Number of approximated MODERATE 3
amounts of urine
Review of Systems
-
Constitutional: Fatigue and Chills
Respiratory: No Symptoms
Cardiac: No Symptoms
Abdomen/GI: No Symptoms
: Frequency
Physical Exam
-
General - well developed, well nourished, no acute distress
[2025-04-06 07:15] LABS: Hematocrit 36.1 % (39.0-52.0); Hemoglobin 11.2 g/dL (13.0-18.0); Mean Corp Hgb Conc. 31.0 g/dL (33.0-37.0); Mean Corpuscular Volume 76.5 fL (80.0-94.0); Platelet Count 181 10^3/uL (130-400); Red Cell Dist. Width 23.6 % (11.5-14.5)
[2025-04-06 08:17] LABS: Blood Urea Nitrogen 18 mg/dl (9-20); Calcium 7.6 mg/dl (8.4-10.2); Carbon Dioxide 22 mmol/L (22-30); Chloride 114 mmol/L (98-107); Estimated Creatinine Clearance 92 ml/min; Glucose 135 mg/dl (70-99); Potassium 3.3 mmol/L (3.5-5.1); Sodium 141 mmol/L (135-145); eGFR > 60.00
--- NOTE | 2025-04-06 08:38 | PHA.VAN.FU ---
Vancomycin Assessment / Plan
- Assessment
Renal Function: SCR Decreasing
WBC's are: Trending Down
In the past 24 hrs, patient has been: Afebrile
Concomitant Antimicrobials: cefepime
- Assessment - Therapeutic Drug Monitoring
Random Level: 9.5 - drawn ~18.5H after previous dose of 1250mg
- Dosing Plan
Dosing by Level: Re-dose today (Vanc 1000mg x2 doses - now and at 1999)
Patient's SCR improved and CrCl appr for Q12H dosing
However, based on level today -not clear if following population PK
Will trial BID dosing and follow level for now
- Monitoring Plan
Random Level: 04/07 0600
- Follow Up
Pharmacy will continue to follow.
Vancomycin Follow UP
- -
Patient Age: 69
Patient Sex: Male
Vancomycin Day #: 2
Indication: Genito-Urinary Tract
Requesting Provider: Aixa Can
Pertinent Antimicrobial Allergies:
penicillins - hives, rash; tolerated amoxicillin
Height / Weight:
Height 6 ft
Actual Weight 119.011 kg
Pertinent Past Medical History: BMI ~36, DM 2
- Vital Signs / Lab Results
Temp Pulse Resp BP Pulse Ox
98.6 F 64 18 146/79 95
04/06/25 07:01 04/06/25 07:01 04/06/25 07:01 04/06/25 07:01 04/06/25 07:01
Lab Results - Hematology
04/04/25 04/05/25 04/05/25
17:05 06:42 10:24
WBC 25.9 H 16.2 H 17.3 H
04/06/25
06:58
WBC 12.3 H
Lab Results - Chemistry
04/04/25 04/05/25 04/06/25
17:05 06:42 06:58
BUN 21 H 18 18
Creatinine 1.5 H 1.2 1.0
Estimated Creat Clear 76 92
Albumin 3.9
04/04/25
17:05
Lactic Acid 1.6
Microbiology Results
04/04/25 20:32 Blood Culture - Preliminary
Blood/Venous No Growth in 24 hours- Final report to follow
04/04/25 20:32 Blood Culture - Preliminary
Blood/Venous No Growth in 24 hours- Final report to follow
04/04/25 20:32 Influenza Types A & B (FELIX) - Final
Nasal Swab Negative for Influenza A & B, NAAT
Negative results must be combined with clinical observations
and patient history.
Nucleic Acid Amplification test (NAAT)performed on the
[employer] platform.
Therapeutic Drug Monitoring
Random Vancomycin 9.5 ug/ml 04/06/25 06:58
[2025-04-06] MEDS: CYMBALTA DELAYED RELEASE 60 MG PO ×2 (10:10→19:48)
[2025-04-06] MEDS: FEOSOL 325 MG PO (10:10)
[2025-04-06] MEDS: LIPITOR 80 MG PO (10:10)
[2025-04-06] MEDS: MIRALAX 17 GRAMS PO (10:10)
[2025-04-06] MEDS: KCL 40 MEQ PO (10:10)
[2025-04-06] MEDS: APRESOLINE 50 MG PO ×3 (10:10→22:13)
[2025-04-06] MEDS: MYSOLINE 250 MG PO ×2 (10:11→19:49)
[2025-04-06] MEDS: INDERAL 60 MG PO ×2 (10:12→19:49)
[2025-04-06] MEDS: TOPAMAX 50 MG PO ×2 (10:12→19:49)
[2025-04-06] MEDS: ELIQUIS 5 MG PO ×2 (10:12→19:49)
[2025-04-06] MEDS: NORVASC 5 MG PO (10:13)
[2025-04-06] MEDS: VANCOCIN 200 IV (10:13)
--- NOTE | 2025-04-06 12:02 | W.PN.ID1 ---
Date of Service
Date of Service: April 06, 2025
Today's Communication
Continue with empiric cefepime. stopped vancomycin
Assessment / Plan
Leukocytosis - improving
Suspected complicated urinary tract infection
Recent history of enterococcal pyelonephritis (s/p 14-day course antibiotics)
Malaise
Chronic anemia
Anxiety/depression
BPH
HLD
Essential tremor
HTN
A-fib (on Xarelto)
Chronic CHF
Chronic bradycardia
Hx CVA
DM
Recommendations:
Continue with empiric cefepime. stopped vancomycin
Blood cultures and urine culture pending. Await results.
Follow white count and temperature curve.
Further recommendations as additional data is returned.
Chief Complaint
-: UTI
Subjective / Review of Systems
afebrile
bp stable
cough noted overnight
had bladder spasms overnight
Vital Signs / Physical Exam
Vital Signs
Vital Signs
Temp Pulse Resp BP Pulse Ox
98.6 F 64 18 146/79 95
04/06/25 07:01 04/06/25 10:10 04/06/25 07:01 04/06/25 10:10 04/06/25 07:01
Physical Exam
Constitutional: No Acute Distress
Cardiovascular: Regular Rate and S1/S2; Negative Murmur or Rub
Pulmonary: Clear and Symmetric; Negative Wheezes or Rales
Gastrointestinal: Soft, Non Tender, Non Distended and Normal Bowel Sounds
Skin: Warm and Dry; Negative Rash or Jaundice
Objective Data
Lab Data
Lab Results
04/06/25 06:58
04/06/25 06:58
Estimated Creat Clear 92 ml/min 04/06/25 06:58
Lactic Acid 1.6 mmol/L (0.7-2.0) 04/04/25 17:05
Total Bilirubin 1.0 mg/dl (0.2-1.3) 04/04/25 17:05
AST 27 U/L (17-59) 04/04/25 17:05
ALT 41 U/L (0-50) 04/04/25 17:05
Alkaline Phosphatase 104 U/L (38-126) 04/04/25 17:05
Most recent labs reviewed.
Micro Results:
04/04/25 20:32 Urine Culture - Preliminary
Urine Gram negative bacilli
04/04/25 20:32 Blood Culture - Preliminary
Blood/Venous No Growth in 24 hours- Final report to follow
04/04/25 20:32 Blood Culture - Preliminary
Blood/Venous No Growth in 24 hours- Final report to follow
04/04/25 20:32 Influenza Types A & B (FELIX) - Final
Nasal Swab Negative for Influenza A & B, NAAT
Negative results must be combined with clinical observations
and patient history.
Nucleic Acid Amplification test (NAAT)performed on the
[employer] platform.
Imaging:
04/04/2025 CXR (2 view): no significant focal parenchymal opacification or vascular congestion. Cardiomediastinal silhouettes are within the limits of normal. No findings suggest pneumonia. Please see full dictation for additional detail.
04/04/2025 CT abdomen/pelvis with contrast: diverticulosis without findings to suggest diverticulitis. Small bilateral nonobstructing renal calculi. Symmetric renal excretion. Bilateral symmetric perinephric stranding, nonspecific. Please see
full dictation for additional detail.
--- NOTE | 2025-04-06 12:13 | W.PN.HOSP.TC ---
Today's Communication/Plan
-
Assessment / Plan
Assessment / Plan
General: No Apparent Distress, Comfortable and Conversant
HEENT: NormoCephalic, Moist mucous membranes, Atraumatic
Respiratory: Clear and Non Labored Respirations
Cardiac: S1/S2 and Regular Rhythm; No Rub or Gallop
GI: Soft, Non Tender, Non Distended and Normal Bowel Sounds
Musculoskeletal: No Edema, no deformity
: NO Petersen, mild right CVA tenderness
Neuro: Awake, Alert, Nonfocal/grossly intact
Psych: Calm and Intact Judgment/Insight
Impression
Complicated UTI pyelonephritis
Nonobstructive nephrolithiasis.
Recent hospitalization with complicated UTI and urine culture with Enterococcus complete course of linezolid as outpatient
Acute kidney injury
Other conditions
History of complicated UTI with VRE bacteremia
Bilateral nephrolithiasis requiring urologic intervention in the settings of complicated UTI.
CHF with preserved EF
Paroxysmal atrial fibrillation
Anticoagulation with Eliquis
Plan:
Recurrent complicated UTI/pyelonephritis
Sepsis ruled out
Recent episode of cystitis with Enterococcus completed course of linezolid.
Prior history of infected obstructive stones with UTI and VRE bacteremia status post lithotripsy.
CT scan on admission with small bilateral nonobstructive renal colliculi. Diverticulosis without diverticulitis
Urine culture growing gram-negative rods/blood cultures negative to date.
Discussed with urology with no indication for urologic intervention at this time.
ID consulted.
Continue empiric antibiotics, currently on vancomycin and cefepime pending final cultures
Started probiotic considering prolonged recent antibiotic course and development of loose stools
ANN
Resolved, will restart home lisinopril
Mild hypokalemia-serum potassium 3.3 on a.m. labs, repleted
Follow BMP
On Lasix as needed [employer]
CHF, preserved EF
Volume status compensated.
Essential hypertension.
Continue propranolol, Norvasc, hydralazine, restarted lisinopril
Anticipated Discharge: > 48 hours
Subjective/Interval History
-
Date of Service: April 06, 2025
Patient was seen and examined at bedside this morning. Still having intermittent right flank pain. Continuing vancomycin and cefepime for UTI. Having loose stools so have started probiotic.
Objective Data
-
Labs:
Laboratory Results
04/06/25
06:58
WBC 12.3 H
Hgb 11.2 L
Hct 36.1 L
Plt Count 181
Sodium 141
Potassium 3.3 L
Chloride 114 H
Carbon Dioxide 22
BUN 18
Creatinine 1.0
Glucose 135 H
Calcium 7.6 L
Vital Signs:
Vital Signs
Temp Pulse Resp BP Pulse Ox
98.6 F 64 18 146/79 95
04/06/25 07:01 04/06/25 10:10 04/06/25 07:01 04/06/25 10:10 04/06/25 07:01
I&O
04/05/25 04/06/25 04/07/25
06:59 06:59 06:59
Intake Total 1115 / 1115
Balance 1115 / 1115
Review of Systems
-
History Source: Patient
All other systems: Reviewed and negative
Genitourinary: Reports Flank Pain
Physical Exam
-
General: No Apparent Distress
[2025-04-06] MEDS: VISBIOME 1 CAP PO (12:51)
[2025-04-06 15:18] VITALS: BP 119/55
[2025-04-06] MEDS: FLOMAX 0.4 MG PO (22:13)
[2025-04-06 23:05] VITALS: BP 156/95
[2025-04-07] MEDS: MAXIPIME 1000 MG IV ×2 (00:55→05:40)
[2025-04-07] MEDS: STERILE WATER FOR INJECTION 10 ML IV ×2 (00:56→05:40)
[2025-04-07] MEDS: FLUSH (NSS) 2 FLUSH IV ×2 (00:57→05:47)
[2025-04-07] MEDS: ROBITUSSIN 200 MG PO (05:52)
[2025-04-07 05:59] VITALS: BMI 35.3
[2025-04-07] MEDS: TYLENOL 650 MG PO (06:10)
[2025-04-07 07:14] VITALS: BP 159/91
[2025-04-07] MEDS: APRESOLINE 50 MG PO (07:34)
[2025-04-07] MEDS: NORVASC 5 MG PO (07:34)
[2025-04-07] MEDS: TOPAMAX 50 MG PO (07:34)
[2025-04-07] MEDS: VISBIOME 1 CAP PO (07:34)
[2025-04-07] MEDS: MYSOLINE 250 MG PO (07:34)
[2025-04-07] MEDS: ELIQUIS 5 MG PO (07:34)
[2025-04-07] MEDS: CYMBALTA DELAYED RELEASE 60 MG PO (07:34)
[2025-04-07] MEDS: INDERAL 60 MG PO (07:35)
[2025-04-07] MEDS: FEOSOL 325 MG PO (07:35)
[2025-04-07] MEDS: LIPITOR 80 MG PO (07:35)
[2025-04-07] MEDS: MIRALAX 17 GRAMS PO (07:37)
[2025-04-07] MEDS: ZESTRIL 20 MG PO (07:37)
--- NOTE | 2025-04-07 07:42 | W.PN.URO.CBU ---
Today's Communication / Plan
-
continue antibx and await cx results
Assessment / Plan
-
recurrent enterococcal UTI
pt with no evid of anatomic abnl and has already undergone previous TURP
continue with antibx per IF
await cx's
will follow
Diagnosis
-
Date of Service: April 07, 2025
-
Patient Diagnosis:
UTI
Subjective
-
pt stable
afebrile/wbc declining
ucx growing gram neg rods
Objective
-
Vital Signs
Temp Pulse Resp BP Pulse Ox
98.4 F 56 18 159/91 95
04/07/25 07:14 04/07/25 07:14 04/07/25 07:14 04/07/25 07:14 04/07/25 07:14
Intake and Output
04/06/25 04/07/25 04/08/25
06:59 06:59 06:59
Intake Total 1115 / 1115 1380 / 1380
Balance 1115 / 1115 1380 / 1380
Intake:
Oral fluids 840 / 840 1380 / 1380
IV piggybacks 275 / 275
Other:
Number of approximated MODERATE 3 3
amounts of urine
Review of Systems
-
Constitutional: Night Sweats
Respiratory: No Symptoms
Cardiac: No Symptoms
Abdomen/GI: No Symptoms
: Frequency
Physical Exam
-
General - no acute distress
[2025-04-07 08:16] LABS: Hematocrit 36.4 % (39.0-52.0); Hemoglobin 11.4 g/dL (13.0-18.0); Mean Corp Hgb Conc. 31.3 g/dL (33.0-37.0); Mean Corpuscular Volume 77.6 fL (80.0-94.0); Platelet Count 206 10^3/uL (130-400); Red Cell Dist. Width 23.5 % (11.5-14.5)
[2025-04-07 08:33] LABS: Blood Urea Nitrogen 18 mg/dl (9-20); Calcium 8.1 mg/dl (8.4-10.2); Carbon Dioxide 24 mmol/L (22-30); Chloride 111 mmol/L (98-107); Estimated Creatinine Clearance 91 ml/min; Glucose 122 mg/dl (70-99); Potassium 3.4 mmol/L (3.5-5.1); Sodium 140 mmol/L (135-145); eGFR > 60.00
--- NOTE | 2025-04-07 10:29 | W.PN.ID1 ---
Date of Service
Date of Service: April 07, 2025
Today's Communication
Start bactrim 1 DS tab BID x14 more days
Blood cultures NGTD
Follow up with PCP
Assessment / Plan
Leukocytosis - improving
Suspected complicated urinary tract infection
Recent history of enterococcal pyelonephritis (s/p 14-day course antibiotics)
Malaise
Chronic anemia
Anxiety/depression
BPH
HLD
Essential tremor
HTN
A-fib (on Xarelto)
Chronic CHF
Chronic bradycardia
Hx CVA
DM
Recommendations:
Start bactrim 1 DS tab BID x14 more days
Blood cultures NGTD
Follow up with PCP
Chief Complaint
-: UTI
Subjective / Review of Systems
afebrile
bp stable
tolerating current therapies
no new complaints
Vital Signs / Physical Exam
Vital Signs
Vital Signs
Temp Pulse Resp BP Pulse Ox
98.4 F 56 18 159/91 95
04/07/25 07:14 04/07/25 07:14 04/07/25 07:14 04/07/25 07:14 04/07/25 07:14
Physical Exam
Constitutional: No Acute Distress
Cardiovascular: Regular Rate and S1/S2; Negative Murmur or Rub
Pulmonary: Clear and Symmetric; Negative Wheezes or Rales
Gastrointestinal: Soft, Non Tender, Non Distended and Normal Bowel Sounds
Skin: Warm and Dry; Negative Rash or Jaundice
Objective Data
Lab Data
Lab Results
04/07/25 07:11
04/07/25 07:11
Estimated Creat Clear 91 ml/min 04/07/25 07:11
Lactic Acid 1.6 mmol/L (0.7-2.0) 04/04/25 17:05
Total Bilirubin 1.0 mg/dl (0.2-1.3) 04/04/25 17:05
AST 27 U/L (17-59) 04/04/25 17:05
ALT 41 U/L (0-50) 04/04/25 17:05
Alkaline Phosphatase 104 U/L (38-126) 04/04/25 17:05
Most recent labs reviewed.
Micro Results:
04/04/25 20:32 Urine Culture - Final
Urine Enterobacter cloacae
Klebsiella pneumoniae
04/04/25 20:32 Blood Culture - Preliminary
Blood/Venous No Growth in 48 hours- Final report to follow
04/04/25 20:32 Blood Culture - Preliminary
Blood/Venous No Growth in 48 hours- Final report to follow
04/04/25 20:32 Influenza Types A & B (FELIX) - Final
Nasal Swab Negative for Influenza A & B, NAAT
Negative results must be combined with clinical observations
and patient history.
Nucleic Acid Amplification test (NAAT)performed on the
[employer] platform.
Imaging:
04/04/2025 CXR (2 view): no significant focal parenchymal opacification or vascular congestion. Cardiomediastinal silhouettes are within the limits of normal. No findings suggest pneumonia. Please see full dictation for additional detail.
04/04/2025 CT abdomen/pelvis with contrast: diverticulosis without findings to suggest diverticulitis. Small bilateral nonobstructing renal calculi. Symmetric renal excretion. Bilateral symmetric perinephric stranding, nonspecific. Please see
full dictation for additional detail.
Care Review
Plan reviewed with: Physician (Dr Amaury rod)
[2025-04-07] MEDS: LOTRIMIN 1% CREAM 1 APPLIC TOPICAL (11:29)
[2025-04-07] MEDS: BACTRIM DS 800 MG/160 MG 1 TABLET PO (11:29)
--- NOTE | 2025-04-07 12:41 | W.DCSUMMARY ---
Discharge Summary
Discharge Data
Date of Admission: 04/04/25
Date of Discharge: 04/07/25
Total time spent discharging patient (in min): 55
-
Pending Results: No
Hospital Course
Mr. Sanford is a 69-year-old male with a medical history of hypertension, HFpEF, paroxysmal A-fib, and recent admission for acute pyelonephritis (03/18/2025 through 03/21/2025) who presented with a recurrence of his pyelonephritis a few days after
completing his outpatient antibiotic course of linezolid for VRE. At time of presentation he had been experiencing fevers, bodyaches, and persistent right CVA tenderness. He had a leukocytosis of 16,[address] imaging of his abdomen and pelvis
showed bilateral perinephric stranding. His UA was positive for pyuria and bacteriuria. He was initially treated with vancomycin and cefepime and made significant clinical improvement. He had initial ANN which resolved with gentle IV fluids, at
which point his home lisinopril was restarted. His urine cultures grew multidrug-resistant Enterococcus and Klebsiella at which point his antibiotic regimen was transitioned to Bactrim which he will continue for 14 more days. He is encouraged to
take a [id number] probiotic considering his prolonged recent antibiotic course. He was evaluated by the urologist who agreed with the above-mentioned plan and felt there was no need for urologic intervention. He was medically stable at time
of hospital discharge. He will be discharged to home. He will need to follow-up closely with his primary care physician. He will need repeat lab work in approximately 1 week to monitor his kidney function. He was treated with clotrimazole cream
for treatment of small itchy erythematous patches on his chest that may be due to a fungal infection. He should follow-up with his primary care physician to monitor for resolution.
General: No Apparent Distress, Comfortable and Conversant
HEENT: NormoCephalic, Moist mucous membranes, Atraumatic
Respiratory: Clear and Non Labored Respirations
Cardiac: S1/S2 and Regular Rhythm; No Rub or Gallop
GI: Soft, Non Tender, Non Distended and Normal Bowel Sounds
Musculoskeletal: No Edema, no deformity
: NO Petersen, mild right CVA tenderness
Neuro: Awake, Alert, Nonfocal/grossly intact
Psych: Calm and cooperative
Discharge Plan
-
Patient Disposition: Home (Routine Discharge)
Discharge Diagnosis/Procedures: Pyelonephritis with multidrug-resistant Enterobacter and Klebsiella
Blood Work: BMP in approximately 1 week to monitor kidney function and electrolytes
Activity Restrictions/Additional Instructions:
Mr. Sanford is a 69-year-old male with a medical history of hypertension, HFpEF, paroxysmal A-fib, and recent admission for acute pyelonephritis (03/18/2025 through 03/21/2025) who presented with a recurrence of his pyelonephritis a few days after
completing his outpatient antibiotic course of linezolid for VRE. At time of presentation he had been experiencing fevers, bodyaches, and persistent right CVA tenderness. He had a leukocytosis of 16,[address] imaging of his abdomen and pelvis
showed bilateral perinephric stranding. His UA was positive for pyuria and bacteriuria. He was initially treated with vancomycin and cefepime and made significant clinical improvement. He had initial ANN which resolved with gentle IV fluids, at
which point his home lisinopril was restarted. His urine cultures grew multidrug-resistant Enterococcus and Klebsiella at which point his antibiotic regimen was transitioned to Bactrim which he will continue for 14 more days. He is encouraged to
take a [id number] probiotic considering his prolonged recent antibiotic course. He was evaluated by the urologist who agreed with the above-mentioned plan and felt there was no need for urologic intervention. He was medically stable at time
of hospital discharge. He will be discharged to home. He will need to follow-up closely with his primary care physician. He will need repeat lab work in approximately 1 week to monitor his kidney function. He was treated with clotrimazole cream
for treatment of small itchy erythematous patches on his chest that may be due to a fungal infection. He should follow-up with his primary care physician to monitor for resolution.
Referrals:
Michael Pastor, DO [Family Provider, [facility]]
Prescriptions:
New
sulfamethoxazole-trimethoprim 800-160 mg Tablet
1 tab PO BID 14 Days Qty: 28 0RF
clotrimazole [Athlete's Foot (clotrimazole)] 1 % Cream
1 applic topical BID Qty: 15 0RF
Lactobac/Bifidobac [Visbiome]
1 cap PO DAILY 21 Days 0RF
Continued
tamsulosin 0.4 MG capsule
0.4 mg PO HS
cyanocobalamin (vitamin B-12) 1,000 MCG tablet
1,000 mcg PO DAILY@1500
primidone 250 MG tablet
250 mg PO BID
duloxetine 60 MG capsule,delayed release(DR/EC)
60 mg PO BID
amlodipine 5 mg Tablet
5 mg PO DAILY
Eliquis 5 mg Tablet
5 mg PO BID Qty: 60 0RF
atorvastatin 80 mg Tablet
80 mg PO DAILY
topiramate 50 mg Tablet
50 mg PO BID
lisinopril 20 mg Tablet
20 mg PO DAILY 30 Days Qty: 30 0RF
propranolol 40 mg Tablet
60 mg PO BID 30 Days Qty: 90 0RF
ferrous sulfate 325 mg (65 mg iron) tablet,delayed release (DR/EC)
325 mg PO DAILY Qty: 30 0RF
furosemide 20 mg tablet
20 mg PO DAILYPRN PRN (Reason: FLUID)
polyethylene glycol 3350 17 gram Powder In Packet
17 g PO DAILY 14 Days Qty: 14 0RF
hydralazine 50 MG tablet
50 mg PO TID Qty: 90 0RF
Discharge Orders:
Discharge Patient (As Directed); Ordered 04/07/25
Ordered By: Sagar Grimes
Discharge Date and Time
Print Language: KOREAN
[2025-04-07] MEDS: KCL 40 MEQ PO (12:45)
[2025-04-07 12:55] VITALS: BP 139/86
== END 2025-04-07 13:46 | disposition home health service (06) | DRG 690 ==
LOC: 2 NORTH 22:53
PROVIDERS: Emergency Medicine; Internal Medicine; Nurse Practitioner Family; Physician Assistant; ADMITTING PHYSICIAN Internal Medicine; ATTENDING PHYSICIAN Internal Medicine; CONSULT PHYSICIAN Specialist; EMERGENCY PHYSICIAN Emergency Medicine; FAMILY PHYSICIAN Family Medicine; OTHER PHYSICIAN Internal Medicine Infectious Disease
DX: N12 Tubulo-interstitial nephritis, not specified as acute or chronic (principal); Z16.24 Resistance to multiple antibiotics; I50.32 Chronic diastolic (congestive) heart failure; I11.0 Hypertensive heart disease with heart failure; N17.9 Acute kidney failure, unspecified; E78.5 Hyperlipidemia, unspecified; I48.0 Paroxysmal atrial fibrillation; F32.A Depression, unspecified; F41.9 Anxiety disorder, unspecified; D64.9 Anemia, unspecified; E11.9 Type 2 diabetes mellitus without complications; E87.6 Hypokalemia; N40.1 Benign prostatic hyperplasia with lower urinary tract symptoms; R35.0 Frequency of micturition; B95.2 Enterococcus as the cause of diseases classified elsewhere; B96.89 Other specified bacterial agents as the cause of diseases classified elsewhere; E66.9 Obesity, unspecified; G25.0 Essential tremor; N20.0 Calculus of kidney; R32 Unspecified urinary incontinence; Z86.73 Personal history of transient ischemic attack (TIA), and cerebral infarction without residual deficits; Z88.0 Allergy status to penicillin; Z79.01 Long term (current) use of anticoagulants; Z79.899 Other long term (current) drug therapy; Z68.35 Body mass index [BMI] 35.0-35.9, adult; Z11.52 Encounter for screening for COVID-19
CPT/HCPCS: 71046; 74177; 80048; 80053; 80202; 81003; 81015; 83605; 85025; 85027; 87040; 87077; 87086; 87186; 87502; 87811; 96361; 96374; 99285; Q9967